=== PATIENT | male | born 1980 | race Hispanic/Latino ===

== ENCOUNTER 2018-06-20 21:47 | Emergency (ER) | payer SELFPAY ==
[~2018-06-20] VITALS: Ht 180.3 cm; Wt 117.9 kg
--- OUTSIDE RECORDS SUMMARY | 2018-06-20 21:50 | XMS REPORT ---
[facility] Address Unknown Phone Unavailable Care Team Providers Care Rig Builder Name Role Phone Unavailable Unavailable Problems This patient has no known problems. Allergies, Adverse Reactions, Alerts This patient has no known allergies or adverse reactions. Medications This patient has no known medications. Encounters Start Date/Time End Date/Time Encounter Type Admission Type Attending [facility] Care Department Encounter ID 2018-06-11 00:00:00 2018-06-11 00:00:00 [facility] [id number] 2018-06-07 00:00:00 2018-06-07 00:00:00 Outpatient [facility] [id number] 2018-06-04 00:00:00 2018-06-04 00:00:00 Outpatient [facility] [id number] 2018-06-04 00:00:00 2018-06-04 00:00:00 Outpatient [facility] [id number] 2018-06-01 00:00:00 2018-06-01 00:00:00 Outpatient [facility] [id number] 2018-03-04 16:13:03 2018-03-04 16:13:03 Outpatient [facility] [id number] 2018-02-22 00:00:00 2018-02-22 00:00:00 Outpatient [facility] [id number] 2018-02-19 16:13:00 2018-02-19 16:13:00 [facility] [id number] 2018-02-19 15:16:43 2018-02-19 15:16:43 Out[facility] [id number] 2017-12-04 00:00:00 2017-12-04 00:00:00 Outpatient [facility] [id number] 2017-11-11 09:28:03 2017-11-11 09:28:03 Outpatient [facility] [id number] 2017-10-23 08:46:47 2017-10-23 08:46:47 Outpatient [facility] [id number] 2017-10-23 08:19:51 2017-10-23 08:19:51 [facility]patient [facility] [id number] 2017-07-21 10:14:13 2017-07-21 10:14:13 Out[facility] [id number] 2017-06-26 00:00:00 2017-06-26 00:00:00 Outpatient [facility] [id number] 2017-06-15 00:00:00 2017-06-15 00:00:00 Outpatient [facility] [id number] 2017-06-04 11:55:49 2017-06-04 11:55:49 Outpatient [facility] [id number] 2017-06-02 22:42:47 2017-06-02 22:42:47 Emergency [facility] [id number] 2017-06-02 17:11:23 2017-06-02 17:11:23 Emergency [facility] [id number] 2017-05-29 21:00:45 2017-05-29 21:00:45 Emergency [facility] [id number]
[2018-06-20 22:35] VITALS: BP 148/90
== END 2018-06-20 22:38 | disposition home or self-care (01) ==
LOC: FSED 21:47
DX: K62.5 Hemorrhage of anus and rectum (principal); K64.8 Other hemorrhoids; R10.30 Lower abdominal pain, unspecified; I10 Essential (primary) hypertension
CPT/HCPCS: 80053; 82270; 85025; 99283

== ENCOUNTER 2020-01-01 21:54 | Emergency (ER) | payer SELFPAY ==
[~2020-01-01] VITALS: Ht 180.3 cm; Wt 117.9 kg
--- OUTSIDE RECORDS SUMMARY | 2020-01-01 21:58 | XMS REPORT | Continuity of Care Document ---
Author Author [facility] t Organization [facility] t Address [address] [place] [address] Phone Unavailable Care Team Providers Care Art Education Professor Name Role Phone NONSTAFF PCP Unavailable Kwan MAC, W Saman Attphys Tyra MAC, M Elieser Attphys Ace MAC, Lee Attphys Janice MAC, A Gale Attphys Brooke Fellow(), Aleks Attphys [phone] Beverly MAC, T Jose Martin Attphys Payers Payer Name Policy Type Policy Number Effective Date Expiration Date S celina [place] [employer] [employer] [employer] [employer] [id number] [address], [place] [address] xxxxxxx 2019 00:00:00 2020 23:59:59 [facility] PLANFINANCIAL ASSISTANCE PROGRAMxxx [id number] [place] [address] xxxxxxx 2019 00:00:00 2020-0 2-13 23:59:59 [facility] Problems Condition Name Condition Details Condition Category Status Onset Date Resolution Date Last Treatment Date Treating Clinician Comments Source Fatty liver: recommend dietary changes, weight loss Fa tty liver: recommend dietary changes, weight loss Disease Active 2018-10-21 00:00:00 [facility] Other constipation Other constipation Disease Active 2018-10-21 00:00:0 0 [facility] Chest pain in adult Chest pain in adult Disease Active 2017-06-02 00:00 :00 [facility] Left upper arm pain Left upper arm pain Disease Active [facility] Allergies, Adverse Reactions, Alerts Allergy Name Allergy Type Status Severity Reaction(s) Onset Date Inacti ve Date Treating Clinician Comments Source Fgvwkht-Wep-Oas Reductase Inhibitor DA Active SV 8 00:00:00 [facility] atorvastatin DA Active MO 2019-03-16 00:00:00 [facility] Atorvastatin Allergy to Substance Active 2018-06-20 00:00:0 0 [facility] Atorvastatin Propensity to adverse reactions to drug Active 2018-06-20 00:00:00 Other reaction(s): Atorvastatin [facility] Ffusnic-Zob-Wfl Reductase Inhibitors Propensity to adverse r eactions to drug Active Other 2018-03-04 00:00:00 Atorv astatin, pravastatin -- caused myalgias [facility] No Known Allergies DA Active U 2015-11-23 00:00:00 [facility] Family History Family Member Diagnosis Comments Start Date Stop Date Source Natural father Heart [facility] Natural mother Heart [facility] Social History Social Habit Start Date Stop Date Quantity Comments Source Sex Assigned At [facility] Cigarettes smoked current (pack per day) - Reported 00:00:00 2019-12-01 00:00:00 [facility] Cigarette pack-years 2019-12-01 00:00:00 2019-12-01 00:00:00 [facility] Alcohol intake 2019-12-01 00:00:00 2019-12-01 00:00:00 [facility] History SDOH Food Worry 2018-10-21 00:00:00 2018-10-21 00:00:00 1 [facility] History SDOH Food Scarcity 2018-10-21 00:00:00 2018-10-21 00:00:00 1 [facility] History of tobacco use 2017-05-03 00:00:00 Current smoker [facility] Smoking Status Start Date Stop Date Source Former smoker 2019-12-01 00:00:00 2019-12-01 00:00:00 [facility] Medications Ordered Medication Name Filled Medication Name Start Date Stop Da te Current Medication? Ordering Clinician Indication Dosage Frequency Signature (SIG) Comments Components Source traZODone (DESYREL) 50 mg tablet 2019-12-01 00:00:00 Yes Anxiety state 50mg Take 1 tablet by mouth at bedtime nightly. [facility] ergocalciferol (VITAMIN D2) 1,250 mcg (50,000 unit) capsule 2019-10-05 00:00:00 Yes Vitamin D deficiency [id number] Take 1 cap jerrell by mouth weekly. [facility] metoprolol tartrate (LOPRESSOR) 25 mg tablet 2019-10-03 00:0 0:00 Yes Palpitations 25mg Q.5D Take 1 tablet by mouth 2 times daily. [facility] lactulose (CONSTULOSE) 10 gram/15 mL oral solution 2019-09 00:00:00 Yes Other constipation 20g Take 30 mL by mouth 3 [address]. [facility] metoprolol tartrate (LOPRESSOR) 25 mg tablet 201 04-04-16 00:00:00 2019-10-03 00:00:00 No Palpitations TAKE 1 TABLET BY MOUTH TWI CE DAILY [facility] aspirin (ASPIRIN) 81 mg chewable tablet 2019-04-08 10:16:56 Yes 81mg QD Chew and swallow 81 mg by mouth daily. [facility]-xpfyasmdx-cvygkpjpxvqstc, buffe red, (CORTISPORIN) 3.5-10,000-1 mg/mL-unit/mL-% otic suspension 2019-02-21 00:00:00 2019-02-28 23:59: 00 No Otitis externa of left ear, unspecified chronicity, unspecified type 3[drp] Instill 3 Drops in right ear 4 times daily for 7 days. [facility] Docusate Sodium 100 mg Tab 2018-12-27 00:00:00 Yes Other constipation 100mg QD Take 100 mg by mouth daily. [facility] lactulose (CONSTULOSE) 10 gram/15 mL oral solution 2018-12-27 00:00:00 2019-10-03 00:00:00 No Other constipation 20g Take 30 mL by mouth 3 times daily. [facility] metoprolol tartrate (LOPRESSOR) 25 mg tablet 201 03-27-09 00:00:00 2019-04-09 00:00:00 No Palpitations 25mg Q.5D Take 1 tablet by mouth 2 t imes daily. [facility] Vital Signs Vital Name Observation Time Observation Value Comments Source Systolic blood pressure 2019-10-03 08:54:00 127 mm[Hg] [facility] Diastolic blood pressure 2019-10-03 08:54:00 87 mm[Hg] [facility] Heart rate 2019-10-03 08:54:00 81 /min [facility] Body temperature 2019-10-03 08:54:00 36.78 Jennifer Karis is [facility] Respiratory rate 2019-10-03 08:54:00 20 /min Karis is [facility] Body height 2019-10-03 08:54:00 177.8 cm [facility] Body weight 2019-10-03 08:54:00 111.041 kg [facility] BMI 2019-10-03 08:54:00 35.13 kg/m2 [facility] Oxygen saturation in Arterial blood by Pulse oximetry 04-08 10:42:00 97 /min [facility] Procedures Procedure Date / Time Performed Performing Clinician Sourc e ELECTROLYTES 2019-10-03 15:22:00 Saman Bowens [facility] CBC/DIFF 2019-10-03 15:22:00 Saman Bowens [facility] GLUCOSE 2019-10-03 15:22:00 Saman Bowens [facility] LIPID PROFILE 2019-10-03 15:22:00 Saman Bowens [facility] UREA NITROGEN/CREATININE 2019-10-03 15:22:00 Saman Bowens [facility] LIVER PROFILE 2019-10-03 15:22:00 Saman Bowens [facility] HIV-1/HIV-2 ROUTINE SCREENING 2019-10-03 15:22:00 Saman Bowens [facility] HEPATITIS PANEL 2019-10-03 15:22:00 Saman Bowens [facility] CALCIUM 2019-10-03 15:22:00 Saman Bowens [facility] VIT D, 25-HYDROXY 2019-10-03 15:22:00 Saman Bowens [facility] CBC 2019-10-03 15:22:00 Saman Bowens [facility] MYOCARDIAL PERFUSION SPECT REST/STRES SINGLE 2019-04-08 18:2 1:36 Saman Bowens [facility] TREADMILL STRESS-TRACING ONLY 2019-04-08 16:20:57 Sa mynor Gallegos [facility] ACTIN (SM) AB 2019-04-08 14:20:00 Aleks Cox [facility] LIVER KIDNEY MICR 2019-04-08 14:20:00 David Coxcanader [facility] ealth CERULOPLASMIN 2019-04-08 14:20:00 David Coxcanader [facility] lth FERRITIN 2019-04-08 14:20:00 Brooke [facility] DUPLEX DOPPLER LOWER EXTREMITY VENOUS, BILATERAL 2019-03-30 15:44:00 Saman Bowens [facility] TREADMILL STRESS-TRACING ONLY 2019-02-18 15:07:10 Saman Bowens [facility] LIVER PROFILE 2019-01-26 14:02:00 Saman Bowens [facility] HEPATITIS PANEL 2019-01-26 14:02:00 Saman Bowens [facility] Plan of Care Planned Activity Planned Date Details Comments Source Future Scheduled Test 2020-04-26 00:00:00 IMM Influenza Seas onal Apr to September (>/= 19 yrs) [code = IMM Influenza Seasonal Apr to September (>/= 19 yrs)] [facility] Encounters Start Date/Time End Date/Time Encounter Type Admission Type Attendi [facility] Care Department Encounter ID Source 2019-04-08 09:22:46 2019-04-08 09:22:46 Outpatient [facility] [id number] [facility] 2019-04-08 09:15:35 2019-04-08 09:15:35 Outpatient [facility] [id number] [facility] 2019-04-05 13:14:09 2019-04-05 13:14:09 Outpatient [facility] [id number] [facility] 2019-03-30 09:34:27 2019-03-30 09:34:27 Outpatient [facility] [id number] [facility] 2019-03-21 00:00:00 2019-03-21 00:00:00 Outpatient [facility] [id number] [facility] 2019-03-10 00:00:00 2019-03-10 00:00:00 Outpatient [facility] [id number] [facility] 2019-02-21 13:49:23 2019-02-21 13:49:23 Outpatient [facility] [id number] [facility] 2019-02-18 08:56:15 2019-02-18 08:56:15 Outpatient [facility] [id number] [facility] 2019-01-26 09:01:42 2019-01-26 09:01:42 Outpatient [facility] [id number] [facility] 2019-01-26 00:00:00 2019-01-26 00:00:00 Outpatient [facility] [id number] [facility] 2018-12-30 11:40:10 2018-12-30 11:40:10 Outpatient [facility] [id number] [facility] 2018-12-27 14:25:35 2018-12-27 14:25:35 Outpatient [facility] [id number] [facility] 2018-12-24 00:00:00 2018-12-24 00:00:00 Outpatient [facility] [id number] [facility] 2018-11-30 13:48:13 2018-11-30 13:48:13 Outpatient [facility] [id number] [facility] 2018-11-29 08:28:51 2018-11-29 08:28:51 Outpatient [facility] [id number] [facility] 2018-11-19 00:00:00 2018-11-19 00:00:00 Outpatient [facility] [id number] [facility] 2018-11-15 00:00:00 2018-11-15 00:00:00 Outpatient [facility] [id number] [facility] 2018-11-15 00:00:00 2018-11-15 00:00:00 Outpatient [facility] [id number] [facility] 2018-11-04 12:00:50 2018-11-04 12:00:50 Outpatient [facility] [id number] [facility] 2018-11-04 11:20:10 2018-11-04 11:20:10 Outpatient [facility] [id number] [facility] 2018-10-28 00:00:00 2018-10-28 00:00:00 Outpatient [facility] [id number] [facility] 2018-10-21 09:59:09 2018-10-21 09:59:09 Outpatient [facility] [id number] [facility] 2018-10-21 08:59:53 2018-10-21 08:59:53 Outpatient [facility] [id number] [facility] 2018-10-01 00:00:00 2018-10-01 00:00:00 Outpatient [facility] [id number] [facility] 2018-09-13 00:00:00 2018-09-13 00:00:00 Outpatient [facility] [id number] [facility] 2018-09-10 00:00:00 2018-09-10 00:00:00 Outpatient [facility] [id number] [facility] 2018-09-08 00:00:00 2018-09-08 00:00:00 Outpatient [facility] [id number] [facility] 2018-09-01 00:00:00 2018-09-01 00:00:00 Outpatient [facility] [id number] [facility] 2018-08-12 12:24:05 2018-08-12 12:24:05 Outpatient [facility] [id number] [facility] 2018-08-06 08:31:56 2018-08-06 08:31:56 Outpatient [facility] [id number] [facility] 2018-08-04 15:13:11 2018-08-04 15:13:11 Outpatient [facility] [id number] [facility] 2018-06-25 20:51:28 2018-06-25 20:51:28 Emergency [facility] [id number] [facility] 2018-06-22 00:00:00 2018-06-22 00:00:00 Outpatient [facility] [id number] [facility] 2018-06-20 21:47:00 2018-06-20 22:38:00 Departed Emergency Room [facility] [id number] [facility] 2018-06-11 00:00:00 2018-06-11 00:00:00 Outpatient [facility] [id number] [facility] 2018-06-07 00:00:00 2018-06-07 00:00:00 Outpatient [facility] [id number] [facility] 2018-06-04 00:00:00 2018-06-04 00:00:00 Outpatient [facility] [id number] [facility] 2018-06-04 00:00:00 2018-06-04 00:00:00 Outpatient [facility] [id number] [facility] 2018-06-01 00:00:00 2018-06-01 00:00:00 Outpatient [facility] [id number] [facility] 2018-03-04 16:13:03 2018-03-04 16:13:03 Outpatient [facility] [id number] [facility] 2018-02-22 00:00:00 2018-02-22 00:00:00 Outpatient [facility] [id number] [facility] 2018-02-19 16:13:00 2018-02-19 16:13:00 Outpatient [facility] [id number] [facility] 2018-02-19 15:16:43 2018-02-19 15:16:43 Outpatient [facility] [id number] [facility] 2017-12-04 00:00:00 2017-12-04 00:00:00 Outpatient [facility] [id number] [facility] 2017-11-11 09:28:03 2017-11-11 09:28:03 Outpatient [facility] [id number] [facility] 2017-10-23 08:46:47 2017-10-23 08:46:47 Outpatient [facility] [id number] [facility] 2017-10-23 08:19:51 2017-10-23 08:19:51 Outpatient [facility] [id number] [facility] 2017-07-21 10:14:13 2017-07-21 10:14:13 Outpatient [facility] [id number] [facility] 2017-06-26 00:00:00 2017-06-26 00:00:00 Outpatient [facility] [id number] [facility] 2017-06-15 00:00:00 2017-06-15 00:00:00 Outpatient [facility] [id number] [facility] 2017-06-04 11:55:49 2017-06-04 11:55:49 Outpatient [facility] [id number] [facility] 2017-06-02 22:42:47 2017-06-02 22:42:47 Emergency [facility] [id number] [facility] 2017-06-02 17:11:23 2017-06-02 17:11:23 Emergency [facility] [id number] [facility] 2017-05-29 21:00:45 2017-05-29 21:00:45 Emergency [facility] [id number] [facility] Results Test Description Test Time Test Comments Results Result Comments Source - XR C-SPINE 2-3 VIEWS 2019-12-16 16:56:00 Nikhil e: YUNIOR RODRIGUEZ [facility] : 1980 Age/S:39 /M [address] [facility] Unit#:[id number] Loc: [place] [address] Phys: Mario Montes [employer]IST[employer] Dis Date: PHONE #: [phone] Status: REG ER FAX #: [phone] Exam Date: 12/16/2019 Reason: PAIN EXAMS: CPT CODE: [id number] XR C-SPINE 2-3 VIEWS 10618 EXAM: Cervical spine, 5 views; INFORMATION: Neck pain; FINDINGS: There is good alignment of the cervical spine. Vertebral bodies, the dens and posterior elements are intact; no evidence of fracture or dislocation. Normal height of intervertebral discs. Unremarkable facet joints. Paravertebral soft tissues are also unremarkable. IMPRESSION: Negative C-spine series. Location code: [facility] at 1656 Reported and signed by: Lucio Pretty M.D. CC: Lico Ariza MD; Mario Montes [facility] Technologist: OMID RIVER, RT(R),CT Trnscrpt D kole: 12/16/2019 (1655) t.[email or web address] Orig Print D/T: S: 12/16/2019 (707) PAGE 1 Signed Report - CTA CHEST FOR PE 2019-12-06 21:17:00 Name: YUNIOR KLEIN [facility] : 1980 Age/S: 39 / M [address] [facility] Unit #: [id number] Loc: [place] [address] Phys: Gaurav Yip NP Acct: [id number] Dis Date: Status: REG ER PHONE #: [phone] Exam Date: 12/06/2019 2114 FAX #: [phone] Reason: R/O PE EXAMS: CPT CODE: [id number] [place] [address] REASON FOR EXAM: R/O PE EXAM ORDER DATE: 12/06/2019 8:32 PM Ordering: Gaurav Yip NP Attending:Sue Pierre MD Location:[facility] COMPARISON: PROCEDURE: - CTA CHEST FOR PE FINDINGS: CT images of the chest were obtained with IV contrast. Reconstructed sagittal and coronal images of the chest were provided for interpretation. Dose modulation, iterative reconstruction, and/or weight based adjustment of the MA/KV was utilized to reduce the radiation dose to as low as reasonably achievable. Intravenous contrast: 100cc of Omnipaque 370. The heart size is within normal limits. No evidence of pericardial effusion The thoracic aorta is unremarkable. No evidence of dissection or aneurysmal dilatation. No filling defect seen within the main or lobar pulmonary arteries to suggest pulmonary embolus. No evidence of mediastinal or hilar adenopathy. The lungs are clear. No evidence of pleural effusion IMPRESSION: No acute findings in the chest. at 2116 Reported and signed by: Reed Brady M.D. CC: Gaurav Yip NP Technologist:MARCELL FOFANA RT(R),CT CTDI: DLP: Trnscb Date/Time: 12/06/2019 (2116) [email or web address] Orig Print D/T: S: 12/06/2019 (2119) PAGE 1 Signed Report D-DIMER 2019-12-06 20:41:00 Test Item D-DIMER (test code = DDIMER) < 100 ng/ml < 600 BASIC METABOLIC [id number] 20:40:00* Test Item Value Reference Range Interpretation Comments SODIUM (test code = NA) 139 mmol/L 135-148 N POTASSIUM (test code = K) 3.8 mmol/L 3.5-5.1 N CHLORIDE (test code = CL) 102 mmol/L 101-109 N CARBON DIOXIDE (test code = CO2) 27.5 mmol/L 21-32 N ANION GAP (test code = GAP) 13 mmol/L 10-20 N GLUCOSE (test code = GLU) 97 mg/dL 74-106 N BLOOD UREA NITROGEN (test code = BUN) 14 mg/dL 3-21 N GLOMERULAR FILTRATION RATE (test code = GFR) > 60 mL/min >=60 Estimated GFR by using Modified MDRD formula.Chronic kidney disease is defined as either kidney damageor GFR <60 mL/min/1.73 m2 for >3 months. CREATININE (test code = CREAT) 1.01 mg/dL 0.55-1.3 N BUN/CREATININE RATIO (test code = BUN/CREA) 13.9 10-20 N CALCIUM (test code = CA) 8.4 mg/dL 8.4-10.2 N [id number] 20:40:00* Test Item Value Reference Range Interpretation Comments TROPONIN-I (test code = TROPI) <0.015 ng/mL 0.00-0.056 N BASIC METABOLIC [id number] 20:37:00* Test Item Value Reference Range Interpretation Comments SODIUM (test code = NA) 139 mmol/L 135-148 N POTASSIUM (test code = K) 3.8 mmol/L 3.5-5.1 N CHLORIDE (test code = CL) 102 mmol/L 101-109 N CARBON DIOXIDE (test code = CO2) 27.5 mmol/L 21-32 N ANION GAP (test code = GAP) 13 mmol/L 10-20 N GLUCOSE (test code = GLU) 97 mg/dL 74-106 N BLOOD UREA NITROGEN (test code = BUN) 14 mg/dL 3-21 N GLOMERULAR FILTRATION RATE (test code = GFR) > 60 mL/min >=60 Estimated GFR by using Modified MDRD formula.Chronic kidney disease is defined as either kidney damageor GFR <60 mL/min/1.73 m2 for >3 months. CREATININE (test code = CREAT) 1.01 mg/dL 0.55-1.3 N BUN/CREATININE RATIO (test code = BUN/CREA) 13.9 10-20 N CALCIUM (test code = CA) 8.4 mg/dL 8.4-10.2 N [id number] 20:37:00* Test Item Value Reference Range Interpretation Comments TROPONIN-I (test code = TROPI) ng/mL 0-0.045 URINALYSIS [id number] 20:37:00* Test Item Value Reference Range Interpretation Comments UA COLOR (test code = COLU) YELLOW YELLOW UA APPEARANCE (test code = APPU) CLEAR CLEAR UA GLUCOSE DIPSTICK (test code = DGLUU) norm mg/dL NEGATIVE UA BILIRUBIN DIPSTICK (test code = BILU) NEGATIVE mg/dL NEGATIVE UA KETONE DIPSTICK (test code = KETU) 15 (1+) mg/dL NEGATIVE A UA SPECIFIC GRAVITY (test code = SGU) 1.015 1.001-1.035 UA BLOOD DIPSTICK (test code = NICHOL) 25 (1+) Mikel/uL NEGATIVE A UA PH DIPSTICK (test code = JOAN) 5.0 5.0-8.0 UA PROTEIN DIPSTICK (test code = PROU) neg mg/dL Neg-15 UA UROBILINIOGEN DIPSTICK (test code = URO) 1 mg/dL 0.0-0.2 A UA NITRITE DIPSTICK (test code = YU) NEGATIVE NEGATIVE UA LEUKOCYTE ESTERASE DIPSTICK (test code = LEUU) neg uL NEGA TIVE UA WBC (test code = WBCU) NONE SEEN per HPF 0-5 UA RBC (test code = RBCU) 0-3 per HPF 0-5 UA EPITHELIAL CELLS (test code = EPIU) Rare (0-1/hpf) per HPF Few UA BACTERIA (test code = BACU) FEW per HPF NONE UA MUCUS (test code = MUCU) MODERATE per LPF NONE-FEW A Urine Source? VoidedDRUGS OF ABUSE SCREEN [id number] 20:37:00* Test Item Value Reference Range Interpretation Comments URN COCAINE (test code = COCAURN) NEGATIVE NEGATIVE URN CANNABINOIDS (test code = CANNABURN) POSITIVE NEGATIVE A URN AMPHETAMINE (test code = AMPHETURN) NEGATIVE NEGATIVE URN BARBITURATE (test code = BARBITURN) NEGATIVE NEGATIVE URN BENZODIAZEPINE (test code = BENZOURN) NEGATIVE NEGATIVE URN OPIATES (test code = OPIATURN) NEGATIVE NEGATIVE URN PHENCYCLIDINE (PCP) (test code = PHENCURN) NEGATIVE NEGATIV E Urine Source? VoidedURINALYSIS [id number] 20:28:00* Test Item Value Reference Range Interpretation Comments UA COLOR (test code = COLU) YELLOW YELLOW UA APPEARANCE (test code = APPU) CLEAR CLEAR UA GLUCOSE DIPSTICK (test code = DGLUU) norm mg/dL NEGATIVE UA BILIRUBIN DIPSTICK (test code = BILU) NEGATIVE mg/dL NEGATIVE UA KETONE DIPSTICK (test code = KETU) 15 (1+) mg/dL NEGATIVE A UA SPECIFIC GRAVITY (test code = SGU) 1.015 1.001-1.035 UA BLOOD DIPSTICK (test code = NICHOL) 25 (1+) Mikel/uL NEGATIVE A UA PH DIPSTICK (test code = JOAN) 5.0 5.0-8.0 UA PROTEIN DIPSTICK (test code = PROU) neg mg/dL Neg-15 UA UROBILINIOGEN DIPSTICK (test code = URO) 1 mg/dL 0.0-0.2 A UA NITRITE DIPSTICK (test code = YU) NEGATIVE NEGATIVE UA LEUKOCYTE ESTERASE DIPSTICK (test code = LEUU) neg uL NEGA TIVE UA WBC (test code = WBCU) NONE SEEN per HPF 0-5 UA RBC (test code = RBCU) 0-3 per HPF 0-5 UA EPITHELIAL CELLS (test code = EPIU) Rare (0-1/hpf) per HPF Few UA BACTERIA (test code = BACU) FEW per HPF NONE UA MUCUS (test code = MUCU) MODERATE per LPF NONE-FEW A Urine Source? VoidedDRUGS OF ABUSE SCREEN [id number] 20:28:00* Test Item Value Reference Range Interpretation Comments URN COCAINE (test code = COCAURN) NEGATIVE URN CANNABINOIDS (test code = CANNABURN) NEGATIVE URN AMPHETAMINE (test code = AMPHETURN) NEGATIVE URN BARBITURATE (test code = BARBITURN) NEGATIVE URN BENZODIAZEPINE (test code = BENZOURN) NEGATIVE URN OPIATES (test code = OPIATURN) NEGATIVE URN PHENCYCLIDINE (PCP) (test code = PHENCURN) NEGATIV E Urine Source? VoidedURINALYSIS [id number] 20:25:00* Test Item Value Reference Range Interpretation Comments UA COLOR (test code = COLU) YELLOW YELLOW UA APPEARANCE (test code = APPU) CLEAR CLEAR UA GLUCOSE DIPSTICK (test code = DGLUU) norm mg/dL NEGATIVE UA BILIRUBIN DIPSTICK (test code = BILU) NEGATIVE mg/dL NEGATIVE UA KETONE DIPSTICK (test code = KETU) 15 (1+) mg/dL NEGATIVE A UA SPECIFIC GRAVITY (test code = SGU) 1.015 1.001-1.035 UA BLOOD DIPSTICK (test code = NICHOL) 25 (1+) Mikel/uL NEGATIVE A UA PH DIPSTICK (test code = JOAN) 5.0 5.0-8.0 UA PROTEIN DIPSTICK (test code = PROU) neg mg/dL Neg-15 UA UROBILINIOGEN DIPSTICK (test code = URO) 1 mg/dL 0.0-0.2 A UA NITRITE DIPSTICK (test code = YU) NEGATIVE NEGATIVE UA LEUKOCYTE ESTERASE DIPSTICK (test code = LEUU) neg uL NEGA TIVE UA WBC (test code = WBCU) per HPF 0-5 UA RBC (test code = RBCU) per HPF 0-5 UA EPITHELIAL CELLS (test code = EPIU) per HPF Few UA BACTERIA (test code = BACU) per HPF NONE Urine Source? VoidedDRUGS OF ABUSE SCREEN [id number] 20:25:00* Test Item Value Reference Range Interpretation Comments URN COCAINE (test code = COCAURN) NEGATIVE URN CANNABINOIDS (test code = CANNABURN) NEGATIVE URN AMPHETAMINE (test code = AMPHETURN) NEGATIVE URN BARBITURATE (test code = BARBITURN) NEGATIVE URN BENZODIAZEPINE (test code = BENZOURN) NEGATIVE URN OPIATES (test code = OPIATURN) NEGATIVE URN PHENCYCLIDINE (PCP) (test code = PHENCURN) NEGATIV E Urine Source? VoidedCBC W/O [id number] 20:24:00* Test Item Value Reference Range Interpretation Comments WHITE BLOOD CELL (test code = WBC) 7.4 K/mm3 4.5-12.5 N RED BLOOD CELL (test code = RBC) 5.11 mill/mm3 4.0-5.8 N HEMOGLOBIN (test code = HGB) 15.5 gram/dL 13.0-17.5 N HEMATOCRIT (test code = HCT) 43.3 % 42.0-52.0 N MEAN CELL VOLUME (test code = MCV) 84.7 fL 80-98 N MEAN CELL HGB (test code = MCH) 30.3 picogram 27.0-33.0 N MEAN CELL HGB CONCETRATION (test code = MCHC) 35.8 gram/dL 33.0-36. 0 N RED CELL DISTRIBUTION WIDTH (test code = RDW) 11.8 % 11.6-16. 2 N RED CELL DISTRIBUTION WIDTH SD (test code = RDW-SD) 37.7 fL 37 .0-51.0 N PLATELET COUNT (test code = PLT) 191 K/mm3 150-450 N MEAN PLATELET VOLUME (test code = MPV) 9.7 fL 6.7-11.0 N - XR CHEST 1 [id number] 20:14:00 Name: YUNIOR RODRIGUEZ [facility]: 1980 Age/S:39 /M [address] [facility] Unit#:[id number] Loc: [place] [address] Phys: Gaurav Yip DESIGN ASSISTANT Dis Date: PHONE #: [phone] Status: REG ER FAX #: [phone] Exam Date: 12/06/2019 Reason: CHEST PAIN EXAMS: CPT CODE: [id number] XR CHEST 1 V 21525 REASON FOR EXAM: CHEST PAIN EXAM ORDER DATE: 12/06/2019 7:48 PM Ordering: Gaurav Yip NP Attending:Sue Pierre MD Location:[facility] PROCEDURE: - XR CHEST 1 V COMPARISON: 12/02/2019 FINDINGS: Portable AP frontal view of the chest obtained at 8:01 PM shows clear lungs without evidence of consolidation. There is no evidence of effusion. The heart size is within normal limits. Pulmonary vasculatures are unremarkable. IMPRESSION: No active disease. at 2013 Reported and signed by: Reed Brady M.D. CC: Gaurav Yip NP Technologist: MARCELL FOFANA RT(R),CT Trnscrpt Data: 12/06/2019 (2013) tSHREYASL Orig Print D/T: S: 12/06/2019 (2016) PAGE 1 Signed Report [id number] 14:59:00* Test Item Value Reference Range Interpretation Comments TROPONIN-I (test code = TROPI) <0.015 ng/mL 0.00-0.056 N - XR CHEST 1 [id number] 12:16:00 Name: YUNIOR RODRIGUEZ [facility] : 1980 Age/S:39 /M [facility] Unit#:[id number] Loc: [place] [address] Phys: Marcelle Hogue MD Dis Date: PHONE #: [phone] Status: REG ER FAX #: [phone] Exam Date: 12/02/2019 Reason: CHEST PAIN EXAMS: CPT CODE: [id number] XR CHEST 1 V 36339 REASON FOR EXAM: CHEST PAIN Exam Order Date: 12/02/2019 11:25 AM Ordering M.Ashely: Marcelle Hogue MD PROCEDURE: - XR CHEST 1 V COMPARISON: Chest x-ray February 18, 2018 FINDINGS: The lungs are clear. There is no pleural effusion or pneumothorax. Pulmonary vascularity is within normal limits. Cardiomediastinal silhouette is normal in size for technique. The mediastinal contours are within normal limits. Musculoskeletal structures are within normal limits. The visualized upper abdomen is within normal limits. IMPRESSION: No acute cardiopulmonary process. Location: [facility] at 1216 Reported and signed by: Franklyn Valentine MD CC: Marcelle Hogue MD Technologist: OMID RIVER, RT(R),CT Trnscrpt Data: 12/02/2019 (1216) t.SDR.RR31 Orig Print D/T: S: 12/02/2019 (5789) PAGE 1 Signed Report BASIC METABOLIC [id number] 12:05:00* Test Item Value Reference Range Interpretation Comments SODIUM (test code = NA) 140 mmol/L 136-145 N POTASSIUM (test code = K) 3.5 mmol/L 3.5-5.1 N CHLORIDE (test code = CL) 102 mmol/L 101-109 N CARBON DIOXIDE (test code = CO2) 21.5 mmol/L 21-32 N ANION GAP (test code = GAP) 20 mmol/L 10-20 N GLUCOSE (test code = GLU) 106 mg/dL 74-106 N BLOOD UREA NITROGEN (test code = BUN) 15 mg/dL 3-21 N GLOMERULAR FILTRATION RATE (test code = GFR) > 60 mL/min >=60 Estimated GFR by using Modified MDRD formula.Chronic kidney disease is defined as either kidney damageor GFR <60 mL/min/1.73 m2 for >3 months. CREATININE (test code = CREAT) 1.12 mg/dL 0.55-1.3 N BUN/CREATININE RATIO (test code = BUN/CREA) 13.4 10-20 N CALCIUM (test code = CA) 8.7 mg/dL 8.4-10.2 N HEPATIC FUNCTION [id number] 12:05:00* Test Item Value Reference Range Interpretation Comments TOTAL PROTEIN (test code = PROT) 8.4 g/dL 6.5-8.4 N ALBUMIN (test code = ALB) 4.9 g/dL 3.4-4.8 H GLOBULIN (test code = GLOB) 3.5 G/DL 1-10 N ALBUMIN/GLOBULIN RATIO (test code = A/G) 1.40 RATIO 0.75-1.50 N BILIRUBIN TOTAL (test code = BILT) 1.10 mg/dL 0.0-1.0 H BILIRUBIN DIRECT (test code = BILD) 0.20 mg/dL 0.0-0.30 N SGOT/AST (test code = AST) 50 U/L 6-32 H SGPT/ALT (test code = ALT) 98 U/L 12-78 H N ote: Change in REFERENCE RANGE due to new reagent method. ALKALINE PHOSPHATASE TOTAL (test code = ALKP) 62 U/L 38-126 N [id number] 12:05:00* Test Item Value Reference Range Interpretation Comments LIPASE (test code = LIP) 114 U/L 128-270 L [id number] 12:05:00* Test Item Value Reference Range Interpretation Comments TROPONIN-I (test code = TROPI) <0.015 ng/mL 0.00-0.056 N BASIC METABOLIC [id number] 11:58:00* Test Item Value Reference Range Interpretation Comments SODIUM (test code = NA) 140 mmol/L 136-145 N POTASSIUM (test code = K) 3.5 mmol/L 3.5-5.1 N CHLORIDE (test code = CL) 102 mmol/L 101-109 N CARBON DIOXIDE (test code = CO2) 21.5 mmol/L 21-32 N ANION GAP (test code = GAP) 20 mmol/L 10-20 N GLUCOSE (test code = GLU) 106 mg/dL 74-106 N BLOOD UREA NITROGEN (test code = BUN) 15 mg/dL 3-21 N GLOMERULAR FILTRATION RATE (test code = GFR) > 60 mL/min >=60 Estimated GFR by using Modified MDRD formula.Chronic kidney disease is defined as either kidney damageor GFR <60 mL/min/1.73 m2 for >3 months. CREATININE (test code = CREAT) 1.12 mg/dL 0.55-1.3 N BUN/CREATININE RATIO (test code = BUN/CREA) 13.4 10-20 N CALCIUM (test code = CA) 8.7 mg/dL 8.4-10.2 N HEPATIC FUNCTION [id number] 11:58:00* Test Item Value Reference Range Interpretation Comments TOTAL PROTEIN (test code = PROT) gram/dL 6.4-8.2 ALBUMIN (test code = ALB) g/dL 3.4-5.0 GLOBULIN (test code = GLOB) g/dL 2.7-4.2 ALBUMIN/GLOBULIN RATIO (test code = A/G) 0.75-1.50 BILIRUBIN TOTAL (test code = BILT) mg/dL 0.2-1.2 BILIRUBIN DIRECT (test code = BILD) mg/dL 0.0-0.20 SGOT/AST (test code = AST) IUnit/L 15-37 SGPT/ALT (test code = ALT) U/L 10-69 ALKALINE PHOSPHATASE TOTAL (test code = ALKP) IUnit/L 45-117 [id number] 11:58:00* Test Item Value Reference Range Interpretation Comments LIPASE (test code = LIP) Unit/L 144-286 [id number] 11:58:00* Test Item Value Reference Range Interpretation Comments TROPONIN-I (test code = TROPI) ng/mL 0-0.045 CBC W/O [id number] 11:47:00* Test Item Value Reference Range Interpretation Comments WHITE BLOOD CELL (test code = WBC) 8.5 K/mm3 4.5-12.5 N RED BLOOD CELL (test code = RBC) 5.55 mill/mm3 4.0-5.8 N HEMOGLOBIN (test code = HGB) 16.3 gram/dL 13.0-17.5 N HEMATOCRIT (test code = HCT) 47.4 % 42.0-52.0 N MEAN CELL VOLUME (test code = MCV) 85.4 fL 80-98 N MEAN CELL HGB (test code = MCH) 29.4 picogram 27.0-33.0 N MEAN CELL HGB CONCETRATION (test code = MCHC) 34.4 gram/dL 33.0-36. 0 N RED CELL DISTRIBUTION WIDTH (test code = RDW) 11.9 % 11.6-16. 2 N RED CELL DISTRIBUTION WIDTH SD (test code = RDW-SD) 37.8 fL 37 .0-51.0 N PLATELET COUNT (test code = PLT) 227 K/mm3 150-450 N MEAN PLATELET VOLUME (test code = MPV) 9.5 fL 6.7-11.0 N Vitamin D, 11-Jcaneyjfrvzgrcocb2059-04-10 11:20:00* Test Item Value Reference Range Interpretation Comments Vit D, 25-Hydroxy (test code = 70543630) 29.2 ng/mL 30-100 L Vitamin D Interpretation (test code = 46764825) Insufficient Suffic ient A Sufficient: >30.0Insufficient: 20.0 - 29.9Deficient: <20.0 Lab Interpretation (test code = 20679-5) [facility]normal [facility] Rout[facility] [id number] 20:53:00* Test Item Value Reference Range Interpretation Comments HIV-1/HIV-2 (test code = 29320-2) Negative Negative Lab Interpretation (test code = 31260-8) Normal [facility] CenterHepatitis [id number] 17:34:00* Test Item Value Reference Range Interpretation Comments Hep C Vir Ab IgG (test code = 26240-4) Negative Negative Hep B Surface Ag (test code = 5196-1) Negative Negative Hep A Vir Ab IgM (test code = 73836-0) Negative Negative Hep B Core Ab IgM (test code = 87706-3) Negative Negative Lab Interpretation (test code = 95923-5) Normal [facility] CenterCBC/Hupm5777-07-07 17:26:00* Test Item Value Reference Range Interpretation Comments WBC (test code = 6690-2) 7.8 K/uL 4.5-12 RBC (test code = 789-8) 4.64 4.60- 6.20 M/uL Hemoglobin (test code = 718-7) 14.1 g/dL 14-18 Hematocrit (test code = 4544-3) 42.3 % 40-54 MCV (test code = 787-2) 91.2 fL 82-92 MCH (test code = 785-6) 30.4 pg 27-31 MCHC (test code = 786-4) 33.3 g/dL 32-36 RDW (test code = 16537-2) 39.1 fL 35.1-43.9 Platelet (test code = 777-3) 256 K/uL 150-400 Mean Platelet Volume (test code = 86790-3) 9.9 fL 9.4-12.4 Percent NRBC (test code = 21261518) 0.0 % Neutrophil (test code = 770-8) 72.9 % 34-67.9 H Lymphs (test code = 736-9) 16.2 % 21.8-50 L Monocytes (test code = 5905-5) 9.3 % 5.3-12 Eos (test code = 713-8) 0.9 % 0.8-5 Basos (test code = 706-2) 0.3 % 0.2-1.2 Immature Granulocytes (test code = 20425445) 0.4 % 0-0.5 Neutrophils (Absolute) (test code = 78963041) 5.71 K/uL 1.78-5.3 6 H Lymphs (Absolute) (test code = 43450394) 1.27 K/uL 1.32-3.57 L Monocytes(Absolute) (test code = 23350449) 0.73 K/uL 0.3-0.82 Eos (Absolute) (test code = 92098166) 0.07 K/uL 0.04-0.54 Baso (Absolute) (test code = 75672745) 0.02 K/uL 0.01-0.08 Immature Grans (Abs) (test code = 28690912) 0.03 K/uL 0-0.03 Absolute NRBC (test code = 32624223) 0.00 K/uL Lab Interpretation (test code = 94889-1) Abnormal [facility] Health[facility] Nitrogen/Yrhtczcyxt7027-58-51 15:49:00* Test Item Value Reference Range Interpretation Comments Urea Nitrogen (test code = 37114958) 12.0 mg/dL 7-25 Creatinine (test code = 94327671) 1.0 mg/dL 0.7-1.3 GFR, Estimated (test code = 48201106) 84 >=90 mL/min/1.73 m2 L Lab Interpretation (test code = 46777-1) Abnormal [place] FheaexFvlrfmt5804-67-06 15:49:00* Test Item Value Reference Range Interpretation Comments Calcium (test code = 73310671) 9.1 mg/dL 8.6-10.3 Lab Interpretation (test code = 69020-3) Normal [facility] MslsybUompihb0679-64-05 15:49:00* Test Item Value Reference Range Interpretation Comments Glucose (test code = 44562337) 96 mg/dL 70-110 Lab Interpretation (test code = 90599-5) Normal [facility] HealthLipid Pfixprz8478-28-84 15:49:00* Test Item Value Reference Range Interpretation Comments Cholesterol (test code = 2093-3) 131.0 mg/dL <=200.0 Triglyceride (test code = 92377450) 192 mg/dL <150 H HDL (test code = 2085-9) 25.0 mg/dL See Reference Range Narrative . LDL (test code = 98623-1) 68 mg/dL <100 Op timal: < 100.0 mg/dLNear Optimal: 120-129 mg/dLBorderline: 130-159 mg/dLHigh: 160-189 mg/dLVery High: >=190 mg/dL Patient Fasting? (test code = 04902463) Yes Lab Interpretation (test code = 91159-3) Abnormal [facility] HealthLiver Rmubrek7126-83-93 15:49:00* Test Item Value Reference Range Interpretation Comments Bilirubin, Total (test code = 2885-2) 0.7 mg/dL 0.2-1.2 Alkaline Phosphatase (test code = 56838450) 46 U/L 34-104 AST (test code = 99153579) 18 U/L 13-39 Direct Bilirubin (test code = 1968-7) 0.2 mg/dL 0-0.2 ALT (test code = 56012779) 37 U/L 7-52 Albumin (test code = 15128-2) 4.3 g/dL 4.2-5.5 Lab Interpretation (test code = 88643-1) Normal [facility] XxukbmMazhcklwrpiy9451-54-56 15:49:00* Test Item Value Reference Range Interpretation Comments Sodium (test code = 2951-2) 141 mmol/L 136-145 Potassium (test code = 2823-3) 4.7 mmol/L 3.5-5.1 Chloride (test code = 2075-0) 103 mmol/L 98-107 CO2 (test code = 23532034) 29 mmol/L 21-31 Anion Gap (test code = 51545844) 9 mmol/L 5-16 Lab Interpretation (test code = 42740-2) Normal [facility] HealthSTREPTOCOCCUS PCR [id number] 18:04:00* Test Item Value Reference Range Interpretation Comments STREPTOCOCCUS DYSGALACTIAE (test code = STREPGC) NEGATIVE FOR G/C N EGATIVE STREPA MOLECULAR (test code = STREPAMOL) NEGATIVE FOR GRP A NEGATIV E MONO [id number] 09:20:00* Test Item Value Reference Range Interpretation Comments MONO SCREEN (test code = MONO) POSITIVE NEGATIVE A TREADMILL STRESS-TRACING [id number] 13:43:04Stress Test [facility] Test Date: 4781-53-62Dql Name: YUNIOR RODRIGUEZ Department: Room: Gender: [employer] Laborer: JAMES BRANOB: 1980 Requested By: GALE CAMACHO AOrder Number: [id number] Reading MD: Lissa Acosta MD Interpretive Statements1. The patient exercised according to the LESLY protocol for 9:43 mins,achievinga work level of Max. METS: 10.40. The resting heart rate of 64 bpm zac to amaximal heart rate of 151 bpm. This value represents 82 % of the maximal,age-predicted heart rate. The resting blood pressure of 143/81 mmHg zac to amaximum blood pressure of 220/106 mmHg. The exercise test was stopped due toleg discomfort.2. Baseline ECG showed normal sinus rhythm.3. There were no ECG changes suggestive of ischemia with treadmill stress.There was no significant arrhythmia noted. 4. The patient did not experience symptoms during peak exercise.5. Hypertensive response to exercise.6. Non-diagnostic treadmill due to inability to reach target heart rate.7. Please see results from nuclear stress test from the same date forperfusion data. Electronically Signed On 04-13-2019 13:43:00 CDT by Daysi [facility] HealthLiv/Kidney Srhb9800-06-90 13:08:00 * Test Item Value Reference Range Interpretation Comments Liver-Kidney Microsomal Ab (test code = 70641-3) 1.1 0.0- 20.0 Units Negative 0.0 - 20.0 Equivocal 20.1 - 24.9 Positive >24.9LKM type 1 antibodies are detected in patients withautoimmune hepatitis type 2 and in up to 8% ofpatients with chronic HCV infection. BRONWYN (test code = BRONWYN) Performed at: [facility] [id number] Director: Dick Meeks MD, Phone: [phone] [facility] CenterGrigdoXAM2967-66-27 11:30:00* Test Item Value Reference Range Interpretation Comments AL Screen (test code = 82227824) Negative Negative Lab Interpretation (test code = 30168-5) Normal [facility] CenterActin (Sm) [id number] 19:07:00* Test Item Value Reference Range Interpretation Comments Actin (Smooth Muscle) Antibody (test code = 26288-4) 9 0 - 19 Units Negative 0 - 19 Weak positive 20 - 30 Moderate to strong positive >30 Actin Antibodies are found in 52-85% of patients with autoimmune hepatitis or chronic active hepatitis and in 22% of patients with primary biliary cirrhosis. BRONWYN (test code = BRONWYN) Performed at: [address] [place] [id number] Director: Dick Meeks MD, Phone: [phone] [facility] CenterMYOCARDIAL PERFUSION SPECT REST/STRES [id number] 15:04:00 MYOCARDIAL PERFUSION SPECT REST/STRES SINGLE Myocardial Perfusion Report YUNIOR WALSH Age: 38 Gender: M : Exam Date: 04/08/2019 13:20 Exam Location: [facility] ing Phys: GALE CAMACHO Referring Phys: JOSE MARTIN MEDINA ading Phys: Cathy Camacho MD Fellow Phys: Herman Gallegos M.D. Fellow Phys: Jay Thompson M.D. Resident: Trish hnologist: Carol Morales Reason For Exam: Indications: Chest pain, unspecified ICD-9 Codes: R07.9 Exam Type: Myocardial Perfusi on Report Procedure CPT: 52036 Additional CPT: BP: / HR: Risk Factors: Previous Cardiac Procedures: Cardiac History: 38 yo male with HTN, h/o tobacco use, and family h/o CAD who reports atypical chest pain in 2018. Had a TMT in 01/2019 that was non-diagnostic due to target heart rate not achieved. Pertinent Meds: Meds past 24 hrs: Pretest Chest Pain: CARDIOLOGY STRESS TEST Exercise Cardiology exercise stress test resul ts pending under separate report. Please look in [facility] under the Procedures T ab in Chart Review. IMAGE PROTOCOL Radiopharmaceutical Dose (mCi) Duration (min) Img Date Img Time Rest: REST DATE Stress: Tc-99m 13.8 STRESS DATE 1140 Tetrofosmin Administration Site: Right antecubital fossa SPECT RESULTS Trish hnical Quality: Adequate Raw Data Analysis: Adequate Stress Perfusion Rest Perfusion Summed Stress Score:0 Summed Rest Score: 0 Summed Difference Score: 0 0 - Normal 2 - Abnormal Uptake 4 - Absent 1 - Mildly Reduced Uptake 3 - Severely Reduced Tracer Uptake X - Not Interpretable RV: SPECT images demonstrate homogeneous tracer distribution throughout the myocardium. FUNCTION (calculated via G ated SPECT) Resting LV EF: % EDV: 106 ml (70-100 ml) Post Stress LV EF: 71 % TID: ESV: 31 ml (30-50 ml) Te chnical Quality: LV Size & Function: Normal left ventricular size and ejection fraction. LV Regional Function: Normal left ventricular wall motion and thickening. Other Findings: Variable Not Implemented IMPRESSIONS 1. No scan evidence of ischemia or scar. 2. Overall left ventricular systolic function is normal with normal wall motion. 3. Normal gated SPECT left ventricular ejection fraction >54%. 4. Normal left ventricular size. 5. No previous study for comparison. 6. Please see ECG stress report in [facility] for details of tracing interpretation. [place] Control: Do not remove! Cathy Camacho MD (Electronically Signed) Final Date: 08 April 2019 15:04 [facility]ZaylrqFoouyrfszgssc9861-36-77 12:09:00* Test Item Value Reference Range Interpretation Comments Ceruloplasmin (test code = 37207721) 18 mg/dL 18-58 Lab Interpretation (test code = 16358-7) Normal [facility] CenterZeihjuFobzlzcl8954-42-37 11:26:00* Test Item Value Reference Range Interpretation Comments Ferritin (test code = 86082262) 134.3 ng/mL 23.9-336.2 Lab Interpretation (test code = 78956-1) [facility] [id number] 16:15:00* Test Item Value Reference Range Interpretation Comments SODIUM (test code = NA) 139 mmol/L 136-145 N POTASSIUM (test code = K) 3.7 mmol/L 3.5-5.1 N CHLORIDE (test code = CL) 108.0 mmol/L 98-107 H CARBON DIOXIDE (test code = CO2) 25.0 mmol/L 21-32 N ANION GAP (test code = GAP) 9.7 10-20 L GLUCOSE (test code = GLU) 104 mg/dL 74-106 N BLOOD UREA NITROGEN (test code = BUN) 12 mg/dL 7-18 N GLOMERULAR FILTRATION RATE (test code = GFR) > 60 mL/min >=60 Estimated GFR by using Modified MDRD formula.Chronic kidney disease is defined as either kidney damageor GFR <60 mL/min/1.73 m2 for >3 months. CREATININE (test code = CREAT) 1.00 mg/dL 0.7-1.3 N BUN/CREATININE RATIO (test code = BUN/CREA) 12.0 10-20 N CALCIUM (test code = CA) 9.1 mg/dL 8.5-10.1 N BASIC METABOLIC [id number] 16:10:00* Test Item Value Reference Range Interpretation Comments SODIUM (test code = NA) 139 mmol/L 136-145 N POTASSIUM (test code = K) 3.7 mmol/L 3.5-5.1 N CHLORIDE (test code = CL) 108.0 mmol/L 98-107 H CARBON DIOXIDE (test code = CO2) mmol/L 21-32 ANION GAP (test code = GAP) 10-20 GLUCOSE (test code = GLU) mg/dL 74-106 BLOOD UREA NITROGEN (test code = BUN) mg/dL 7-18 GLOMERULAR FILTRATION RATE (test code = GFR) mL/min >=60 CREATININE (test code = CREAT) mg/dL 0.7-1.3 BUN/CREATININE RATIO (test code = BUN/CREA) 10-20 CALCIUM (test code = CA) mg/dL 8.5-10.1 CBC W/AUTO [id number] 16:02:00* Test Item Value Reference Range Interpretation Comments WHITE BLOOD CELL (test code = WBC) 7.4 K/mm3 4.5-12.5 N RED BLOOD CELL (test code = RBC) 5.20 mill/mm3 4.0-5.8 N HEMOGLOBIN (test code = HGB) 16.0 gram/dL 13.0-17.5 N HEMATOCRIT (test code = HCT) 46.0 % 42.0-52.0 N MEAN CELL VOLUME (test code = MCV) 88.5 fL 80-98 N MEAN CELL HGB (test code = MCH) 30.8 picogram 27.0-33.0 N MEAN CELL HGB CONCETRATION (test code = MCHC) 34.8 gram/dL 33.0-36. 0 N RED CELL DISTRIBUTION WIDTH (test code = RDW) 11.6 % 11.6-16. 2 N RED CELL DISTRIBUTION WIDTH SD (test code = RDW-SD) 37.0 fL 37 .0-51.0 N PLATELET COUNT (test code = PLT) 193 K/mm3 150-450 N MEAN PLATELET VOLUME (test code = MPV) 9.9 fL 6.7-11.0 N NEUTROPHIL % (test code = NT%) 70.7 % 39.0-69.0 H IMMATURE GRANULOCYTE % (test code = IG%) 0.4 % 0.0-5.0 N LYMPHOCYTE % (test code = LY%) 21.2 % 25.0-55.0 L MONOCYTE % (test code = MO%) 6.3 % 0.0-10.0 N EOSINOPHIL % (test code = EO%) 1.1 % 0.0-5.0 N BASOPHIL % (test code = BA%) 0.3 % 0.0-1.0 N NUCLEATED RBC % (test code = NRBC%) 0.0 % 0-0 N NEUTROPHIL # (test code = NT#) 5.25 K/mm3 1.8-7.7 N IMMATURE GRANULOCYTE # (test code = IG#) 0.03 x10 3/uL 0-0.03 N LYMPHOCYTE # (test code = LY#) 1.57 K/mm3 1.0-5.0 N MONOCYTE # (test code = MO#) 0.47 K/mm3 0-0.8 N EOSINOPHIL # (test code = EO#) 0.08 K/mm3 0.0-0.5 N BASOPHIL # (test code = BA#) 0.02 K/mm3 0.0-0.2 N NUCLEATED RBC # (test code = NRBC#) 0.00 K/mm3 0.0-0.1 N CBC W/AUTO [id number] 16:00:00* Test Item Value Reference Range Interpretation Comments WHITE BLOOD CELL (test code = WBC) K/mm3 4.5-12.5 RED BLOOD CELL (test code = RBC) mill/mm3 4.0-5.8 HEMOGLOBIN (test code = HGB) 16.0 gram/dL 13.0-17.5 N HEMATOCRIT (test code = HCT) 46.0 % 42.0-52.0 N MEAN CELL VOLUME (test code = MCV) fL 80-98 MEAN CELL HGB (test code = MCH) picogram 27.0-33.0 MEAN CELL HGB CONCETRATION (test code = MCHC) gram/dL 33.0-36. 0 RED CELL DISTRIBUTION WIDTH (test code = RDW) % 11.6-16. 2 RED CELL DISTRIBUTION WIDTH SD (test code = RDW-SD) fL 37 .0-51.0 PLATELET COUNT (test code = PLT) K/mm3 150-450 MEAN PLATELET VOLUME (test code = MPV) fL 6.7-11.0 NEUTROPHIL % (test code = NT%) % 39.0-69.0 IMMATURE GRANULOCYTE % (test code = IG%) % 0.0-5.0 LYMPHOCYTE % (test code = LY%) % 25.0-55.0 MONOCYTE % (test code = MO%) % 0.0-10.0 EOSINOPHIL % (test code = EO%) % 0.0-5.0 BASOPHIL % (test code = BA%) % 0.0-1.0 NEUTROPHIL # (test code = NT#) K/mm3 1.8-7.7 LYMPHOCYTE # (test code = LY#) K/mm3 1.0-5.0 MONOCYTE # (test code = MO#) K/mm3 0-0.8 EOSINOPHIL # (test code = EO#) K/mm3 0.0-0.5 BASOPHIL # (test code = BA#) K/mm3 0.0-0.2 - CT HEAD/BRAIN W/O [id number] 21:19:00 Name: KENDALL,YUNIOR [facility] : 1980 Age/S: 38 / M [address] [facility] Unit #: [id number] Loc: [place] [address] Phys: Esau Taylor MD Acct: [id number] Dis Date: Status: REG ER PHONE #: [phone] Exam Date: 12/01/20182112 FAX #: [phone] Reason: Headache EXAMS: CPT CODE: [id number] CT HEAD/BRAIN W/O CONT 77268 REASON FOR EXAM: Headache EXAM ORDER DATE: 12/01/2018 7:36 PM Ordering M.Ashely: Esau Taylor MD PROCEDURE: - CT HEAD/BRAIN W/O CONT COMPARISON: FINDINGS: CT images of the brain were obtained without IV contrast. Dose modulation, iterative reconstruction, and/or weight based adjustment of the MA/KV was utilized to reduce the radiation dose to as low as reasonably achievable. The brain parenchyma is within normal limits. The reeves-white matter delineation is unremarkable. The ventricles, cisterns, and sulci are unremarkable. There is no evidence of hemorrhage, mass, mass effect. There is no evidence of acute or old infarct. The calvarium is intact. IMPRESSION: Unremarkable brain. at 2119 Reported and signed by: Reed Brady M.D. CC: Esau Taylor MD Technologist:MARCELL FOFANA RT(R),CT CTDI: DLP: Trnscb Date/Time: 12/01/2018 (2118) [email or web address] Orig Print D/T: S: 12/01/2018 (2121) PAGE 1 Signed Report URINALYSIS [id number] 20:17:00* Test Item Value Reference Range Interpretation Comments UA COLOR (test code = COLU) YELLOW YELLOW UA APPEARANCE (test code = APPU) CLEAR CLEAR UA GLUCOSE DIPSTICK (test code = DGLUU) norm mg/dL NEGATIVE UA BILIRUBIN DIPSTICK (test code = BILU) NEGATIVE mg/dL NEGATIVE UA KETONE DIPSTICK (test code = KETU) neg mg/dL NEGATIVE UA SPECIFIC GRAVITY (test code = SGU) 1.020 1.001-1.035 UA BLOOD DIPSTICK (test code = NICHOL) 10 (Trace) Mikel/uL NEGATIVE A UA PH DIPSTICK (test code = JOAN) 5.0 5.0-8.0 UA PROTEIN DIPSTICK (test code = PROU) neg mg/dL Neg-15 UA UROBILINIOGEN DIPSTICK (test code = URO) 1 mg/dL 0.0-0.2 A UA NITRITE DIPSTICK (test code = YU) NEGATIVE NEGATIVE UA LEUKOCYTE ESTERASE DIPSTICK (test code = LEUU) 25 Tristin/uL (Tra ce) uL NEGATIVE A UA WBC (test code = WBCU) 0-5 per HPF 0-5 UA RBC (test code = RBCU) 0-2 per HPF 0-5 UA EPITHELIAL CELLS (test code = EPIU) Few (2-5/hpf) per HPF Few UA BACTERIA (test code = BACU) FEW per HPF NONE UA MUCUS (test code = MUCU) MODERATE per LPF NONE-FEW A Urine Source? Clean CatchBASIC METABOLIC [id number] 20:17:00* Test Item Value Reference Range Interpretation Comments SODIUM (test code = NA) 137 mmol/L 136-145 N POTASSIUM (test code = K) 3.9 mmol/L 3.5-5.1 N CHLORIDE (test code = CL) 103 mmol/L 101-109 N CARBON DIOXIDE (test code = CO2) 27.8 mmol/L 21-32 N ANION GAP (test code = GAP) 10 mmol/L 10-20 N GLUCOSE (test code = GLU) 93 mg/dL 74-106 N BLOOD UREA NITROGEN (test code = BUN) 16 mg/dL 3-21 N GLOMERULAR FILTRATION RATE (test code = GFR) > 60 mL/min >=60 Estimated GFR by using Modified MDRD formula.Chronic kidney disease is defined as either kidney damageor GFR <60 mL/min/1.73 m2 for >3 months. CREATININE (test code = CREAT) 0.98 mg/dL 0.55-1.3 N BUN/CREATININE RATIO (test code = BUN/CREA) 16.3 10-20 N CALCIUM (test code = CA) 9.1 mg/dL 8.4-10.2 N HEPATIC FUNCTION [id number] 20:17:00* Test Item Value Reference Range Interpretation Comments TOTAL PROTEIN (test code = PROT) 7.7 g/dL 6.5-8.4 N ALBUMIN (test code = ALB) 4.2 g/dL 3.4-4.8 N GLOBULIN (test code = GLOB) 3.5 G/DL 1-10 N ALBUMIN/GLOBULIN RATIO (test code = A/G) 1.20 RATIO 0.75-1.50 N BILIRUBIN TOTAL (test code = BILT) 0.50 mg/dL 0.0-1.0 N BILIRUBIN DIRECT (test code = BILD) 0.10 mg/dL 0.0-0.30 N SGOT/AST (test code = AST) 20 U/L 6-32 N SGPT/ALT (test code = ALT) 42 U/L 12-78 N N ote: Change in REFERENCE RANGE due to new reagent method. ALKALINE PHOSPHATASE TOTAL (test code = ALKP) 58 U/L 38-126 N [id number] 20:17:00* Test Item Value Reference Range Interpretation Comments MAGNESIUM (test code = MAG) 2.2 mg/dL 1.6-2.3 N [id number] 20:17:00* Test Item Value Reference Range Interpretation Comments TROPONIN-I (test code = TROPI) <0.015 ng/mL 0.00-0.056 N URINALYSIS [id number] 20:08:00* Test Item Value Reference Range Interpretation Comments UA COLOR (test code = COLU) YELLOW YELLOW UA APPEARANCE (test code = APPU) CLEAR CLEAR UA GLUCOSE DIPSTICK (test code = DGLUU) norm mg/dL NEGATIVE UA BILIRUBIN DIPSTICK (test code = BILU) NEGATIVE mg/dL NEGATIVE UA KETONE DIPSTICK (test code = KETU) neg mg/dL NEGATIVE UA SPECIFIC GRAVITY (test code = SGU) 1.020 1.001-1.035 UA BLOOD DIPSTICK (test code = NICHOL) 10 (Trace) Mikel/uL NEGATIVE A UA PH DIPSTICK (test code = JOAN) 5.0 5.0-8.0 UA PROTEIN DIPSTICK (test code = PROU) neg mg/dL Neg-15 UA UROBILINIOGEN DIPSTICK (test code = URO) 1 mg/dL 0.0-0.2 A UA NITRITE DIPSTICK (test code = YU) NEGATIVE NEGATIVE UA LEUKOCYTE ESTERASE DIPSTICK (test code = LEUU) 25 Tristin/uL (Tra ce) uL NEGATIVE A UA WBC (test code = WBCU) per HPF 0-5 UA RBC (test code = RBCU) per HPF 0-5 UA EPITHELIAL CELLS (test code = EPIU) per HPF Few UA BACTERIA (test code = BACU) per HPF NONE Urine Source? Clean CatchCBC W/AUTO [id number] 19:58:00* Test Item Value Reference Range Interpretation Comments WHITE BLOOD CELL (test code = WBC) 7.5 K/mm3 4.5-12.5 N RED BLOOD CELL (test code = RBC) 5.16 mill/mm3 4.0-5.8 N HEMOGLOBIN (test code = HGB) 15.8 gram/dL 13.0-17.5 N HEMATOCRIT (test code = HCT) 44.2 % 42.0-52.0 N MEAN CELL VOLUME (test code = MCV) 85.7 fL 80-98 N MEAN CELL HGB (test code = MCH) 30.6 picogram 27.0-33.0 N MEAN CELL HGB CONCETRATION (test code = MCHC) 35.7 gram/dL 33.0-36. 0 N RED CELL DISTRIBUTION WIDTH (test code = RDW) 11.2 % 11.6-16. 2 L RED CELL DISTRIBUTION WIDTH SD (test code = RDW-SD) 36.1 fL 37 .0-51.0 L PLATELET COUNT (test code = PLT) 204 K/mm3 150-450 N MEAN PLATELET VOLUME (test code = MPV) 9.7 fL 6.7-11.0 N NEUTROPHIL % (test code = NT%) 53.1 % 39.0-69.0 N LYMPHOCYTE % (test code = LY%) 35.9 % 25.0-55.0 N MONOCYTE % (test code = MO%) 8.4 % 0.0-10.0 N EOSINOPHIL % (test code = EO%) 2.1 % 0.0-5.0 N BASOPHIL % (test code = BA%) 0.5 % 0.0-1.0 N NEUTROPHIL # (test code = NT#) 3.96 K/mm3 1.8-7.7 N LYMPHOCYTE # (test code = LY#) 2.68 K/mm3 1.0-5.0 N MONOCYTE # (test code = MO#) 0.63 K/mm3 0-0.8 N EOSINOPHIL # (test code = EO#) 0.16 K/mm3 0.0-0.5 N BASOPHIL # (test code = BA#) 0.04 K/mm3 0.0-0.2 N MANUAL DIFF REQUIRED (test code = MDIFF) NO [id number] 12:18:00* Test Item Value Reference Range Interpretation Comments D-DIMER (test code = DDIMER) < 100 ng/ml < 600
--- OUTSIDE RECORDS SUMMARY | 2020-01-01 21:58 | XMS REPORT | Clinical Summary ---
Author Author [facility] ict Organization [facility] ict Address Unknown Phone Unavailable Care Team Providers Care Steward/Stewardess Dining Room Name Role Phone Jose Martin Medina MD PCP Allergies Comments Active Allergy Reactions Severity Noted Date Other reaction(s): Atorvastatin Atorvastatin 06/20/2018 Atorvastatin, pravastatin -- caused myalgias Kziahen-Zuz-Zqs Reductase Other 03/04/2018 Inhibitors Medications End Date Status Medication Sig Dispensed Refills Start Date Active aspirin (ASPIRIN) 81 mg Chew and 0 chewable tablet swallow 81 mg by mouth daily. Active Docusate Sodium 100 mg Take 100 mg 100 tablet 1 TabIndications: Other by mouth 9 constipation daily. Active metoprolol tartrate Take 1 tablet 180 tablet 1 (LOPRESSOR) 25 mg by mouth 2 0 tabletIndications: times daily. Palpitations Active lactulose (CONSTULOSE) 10 Take 30 mL by 940 mL 3 gram/15 mL oral mouth 3 times 0 solutionIndications: daily. Other constipation Active ergocalciferol (VITAMIN Take 1 12 capsule 0 D2) 1,250 mcg (50,000 capsule by 0 unit) capsuleIndications: mouth weekly. Vitamin D deficiency Active traZODone (DESYREL) 50 mg Take 1 tablet 30 tablet 1 tabletIndications: by mouth at 0 Anxiety state bedtime nightly. 04/09/2019 Discontinued (Reorder) metoprolol tartrate Take 1 tablet 90 tablet 1 (LOPRESSOR) 25 mg by mouth 2 9 tabletIndications: times daily. Essential hypertension, Palpitations 10/03/2019 Discontinued (Reorder) lactulose (CONSTULOSE) 10 Take 30 mL by 940 mL 3 gram/15 mL oral mouth 3 times 9 solutionIndications: daily. Other constipation 02/28/2019 trqbiphy-uiconuica-bnrscy Instill 3 10 mL 0 ortisone, buffered, Drops in 9 (CORTISPORIN) right ear 4 3.5-10,000-1 times daily mg/mL-unit/mL-% otic for 7 days. suspensionIndications: Otitis externa of left ear, unspecified chronicity, unspecified type 10/03/2019 Discontinued (Reorder) metoprolol tartrate TAKE 1 TABLET 60 tablet 3 03/27 (LOPRESSOR) 25 mg BY MOUTH 9 tabletIndications: TWICE DAILY Essential hypertension, Palpitations Active Problems Problem Noted Date Fatty liver: recommend dietary changes, weight loss 10/21/2018 Other constipation 10/21/2018 Chest pain in adult 06/02/2017 Left upper arm pain Encounters Care Team Description Date Type Specialty Salvador Yan III, MD Insomnia, unspecified type (Primary Dx); Hypertension, unspecified type: ; Palpitations; Anxiety state 12/01/2019 Telephonic Family Practice Encounter Salvador Yan III, MD Hypertension, unspecified type: (Primar y Dx); Palpitations; Other constipation 10/03/2019 Office Visit Family Practice Elieser Mary MD Essential hypertension; Palpitations 04/09/2019 Refill Family Practice Lee Bello MD Fatty liver 04/08/2019 Hospital Lab Encounter Salvador Yan III, MD Wendt, Juliet A, MD Chest pain, unspecified type 04/08/2019 Hospital Radiology Encounter Lee Bello MD Chandran, Aswathi, Fellow(MD) Fatty liver (Primary Dx) 04/05/2019 Office Visit Gastroenterology Salvador Yan III, MD 03/30/2019 Hospital Vascular Surgery Encounter Salvador Yan III, MD Canceled (Patient Request) 03/21/2019 Hospital Radiology Encounter Salvador Yan III, MD Chest pain, unspecified type (Primary Dx ); Otitis externa of left ear, unspecified chronicity, unspecified type 02/21/2019 Office Visit Family Practice Salvador Yan III, MD Chest pain, unspecified type 02/21/2019 Orders Only Family Practice Jose Martin Medina MD 02/18/2019 Hospital Cardiology Encounter after 12/31/2018 Immunizations Name Administration Dates Next Due Influenza, Injectable, 10/03/2019 (Deferred: Patie nt Refused) Quadrivalent Influenza, 10/21/2018 (Deferred: Patie nt Refused) Vaccine<FLUCELVAX>(Multi- Dose) Tdap (Tetanus Toxoid, 11/04/2018 (Deferred: Patie nt Refused - pt states Reduced Diphtheria Toxoid he steps on nails all the time and has no And Acellular Pertussis, problems), 10/21/2018 (Defe rred: Patient Refused - Absorbed) states his is nurse an d will give him vaccines) Family History Medical History Relation Name Comments Heart Father Heart Mother Relation Name Status Comments Father Mother Social History Date Tobacco Use Types Packs/Day Years Used Quit: 05/03/2017 Former Smoker Cigarettes 1 10 Smokeless Tobacco: Never Used Tobacco Cessation: Counseling Given: No Drinks/Week oz/Week Comments Alcohol Use No Food Insecurity Answer Date Recorded Within the past 12 months, you worried that your Never kwan e 10/21/2018 food would run out before you got money to buy more. Within the past 12 months, the food you bought Never true 10/21/2018 just didn't last and you didn't have mo trever to get more. Sex Assigned at Date Recorded Not on file Industry Job Start Date Occupation Not on file Not on file Not on file Travel End Travel History Travel Start No recent travel history available. Last Filed Vital Signs Reading Time Taken Comments Vital Sign 127/87 10/03/2019 8:54 AM CDT Blood Pressure 81 10/03/2019 8:54 AM CDT Pulse 36.8 C (98.2 F) 10/03/2019 8:54 AM CDT Temperature 20 10/03/2019 8:54 AM CDT Respiratory Rate 97% 04/08/2019 10:42 AM CDT Oxygen Saturation - - Inhaled Oxygen Concentration 111 kg (244 lb 12.8 oz) 10/03/2019 8:54 AM CDT Weight 177.8 cm (5' 10") 10/03/2019 8:54 AM CDT Height 35.13 10/03/2019 8:54 AM CDT Body Mass Index Plan of Treatment Care Team Description Date Type Specialty 24 HR 01/23/2020 Appointment Health Maintenance Due Date Last Done Comments IMM Influenza Seasonal 04/26/2020 Oct to September (>/= 19 yrs) Procedures Comments Procedure Name Priority Date/Time Associated Diag nosis CBC Routine 10/03/2019 Hypertension, u nspecified 10:22 AM CDT type: VIT D, 25-HYDROXY Routine 10/03/2019 Hypertension , unspecified 10:22 AM CDT type: CALCIUM Routine 10/03/2019 Hypertension, u nspecified 10:22 AM CDT type: HEPATITIS PANEL Routine 10/03/2019 Hypertension, unspecified 10:22 AM CDT type: HIV-1/HIV-2 ROUTINE Routine 10/03/2019 Hypertensi on, unspecified SCREENING 10:22 AM CDT type: LIVER PROFILE Routine 10/03/2019 Hypertension, u nspecified 10:22 AM CDT type: UREA NITROGEN/CREATININE Routine 10/03/2019 Hyper tension, unspecified 10:22 AM CDT type: LIPID PROFILE Routine 10/03/2019 Hypertension, u nspecified 10:22 AM CDT type: GLUCOSE Routine 10/03/2019 Hypertension, u nspecified 10:22 AM CDT type: CBC/DIFF Routine 10/03/2019 Hypertension, u nspecified 10:22 AM CDT type: ELECTROLYTES Routine 10/03/2019 Hypertension, u nspecified 10:22 AM CDT type: MYOCARDIAL PERFUSION Routine 04/08/2019 Chest patti n, unspecified SPECT REST/STRES SINGLE 1:21 PM CDT type TREADMILL STRESS-TRACING 04/08/2019 ONLY 11:20 AM CDT FERRITIN Routine 04/08/2019 Fatty liver 9:20 AM CDT CERULOPLASMIN Routine 04/08/2019 Fatty liver 9:20 AM CDT LIVER KIDNEY MICR Routine 04/08/2019 Fatty liver 9:20 AM CDT ACTIN (SM) AB Routine 04/08/2019 Fatty liver 9:20 AM CDT AL Routine 04/08/2019 Fatty liver 9:20 AM CDT DUPLEX DOPPLER LOWER Routine 03/30/2019 Varicose veins of both EXTREMITY VENOUS, 10:44 AM CDT lower extremities, BILATERAL unspecified whether complicated TREADMILL STRESS-TRACING Routine 02/18/2019 Chest pain, unspecified ONLY 10:07 AM CDT type HEPATITIS PANEL Routine 01/26/2019 Fatty liver 9:02 AM CDT LIVER PROFILE Routine 01/26/2019 Fatty liver 9:02 AM CDT after 12/31/2018 Results * CBC/Diff (10/03/2019 10:22 AM CDT) WBC 7.8 4.5 - 12.0 K/uL [facility] RBC 4.64 4.60 - 6.20 M/uL [facility] Hemoglobin 14.1 14.0 - 18.0 g/dL [facility] Hematocrit 42.3 40.0 - 54.0 % [facility] MCV 91.2 82.0 - 92.0 fL [facility] MCH 30.4 27.0 - 31.0 pg [facility] MCHC 33.3 32.0 - 36.0 g/dL [facility] RDW 39.1 35.1 - 43.9 fL [facility] Platelet 256 150 - 400 K/uL [facility] Mean Platelet 9.9 9.4 - 12.4 fL [facility] Volume [facility] Percent NRBC 0.0 % [facility] Neutrophil 72.9 (H) 34.0 - 67.9 % [facility] Lymphs 16.2 (L) 21.8 - 50.0 % [facility] Monocytes 9.3 5.3 - 12.0 % [facility] Eos 0.9 0.8 - 5.0 % [facility] Basos 0.3 0.2 - 1.2 % [facility] Immature 0.4 0.0 - 0.5 % [facility] Granulocytes [facility] Neutrophils 5.71 (H) 1.78 - 5.36 K/uL [facility] (Absolute) [facility] Lymphs 1.27 (L) 1.32 - 3.57 K/uL [facility] (Absolute) [facility] Monocytes(Absol 0.73 0.30 - 0.82 K/uL [facility] jackson) [facility] Eos (Absolute) 0.07 0.04 - 0.54 K/uL [facility] Baso (Absolute) 0.02 0.01 - 0.08 K/uL [facility] Immature Grans 0.03 0.00 - 0.03 K/uL [facility] (Abs) [facility] Absolute NRBC 0.00 K/uL [facility] Specimen Blood Performing Organization Address [facility] one Number [facility] [address] [place] [address] * Vitamin D, 25-Hydroxycalciferol (10/03/2019 10:22 AM CDT) Pathologist [facility] Vit D, 29.2 (L) 30.0 - 100.0 ng/mL [facility] 25-Hydroxy [facility] Vitamin D Insufficient (A) Sufficient [facility] Interpretation Comment: [facility] Sufficient: >30.0 Insufficient: 20.0 - 29.9 Deficient: <20.0 Specimen Blood Performing Organization Address [facility] one Number [facility] [address] [place] [address] [phone] * HIV-1/HIV-2 Routine Screening (10/03/2019 10:22 AM CDT) Pathologist [facility] HIV-1/HIV-2 Negative Negative [facility] Specimen Blood Performing Organization Address [facility] one Number [facility] [address] [place] [address] * Electrolytes (10/03/2019 10:22 AM CDT) Sodium 141 136 - 145 mmol/L [facility] Potassium 4.7 3.5 - 5.1 mmol/L [facility] Chloride 103 98 - 107 mmol/L [facility] CO2 29 21 - 31 mmol/L [facility] Anion Gap 9 5 - 16 mmol/L [facility] Specimen Blood Performing Organization Address [facility] one Number [facility] [address] [place] [address] * Liver Profile (10/03/2019 10:22 AM CDT) Only the most recent of 2 results within the time period is included. [facility] Total Protein 7.3 6.0 - 8.3 g/dL [facility] Bilirubin, 0.7 0.2 - 1.2 mg/dL [facility] Total [facility] Alkaline 46 34 - 104 U/L [facility] Phosphatase [facility] AST 18 13 - 39 U/L [facility] Direct 0.2 0.0 - 0.2 mg/dL [facility] Bilirubin [facility] ALT 37 7 - 52 U/L [facility] Albumin 4.3 4.2 - 5.5 g/dL [facility] Specimen Blood Performing Organization Address [facility] one Number [facility] [address] [place] [address] [phone] * Lipid Profile (10/03/2019 10:22 AM CDT) [facility] Cholesterol 131.0 <=200.0 mg/dL [facility] Triglyceride 192 (H) <150 mg/dL [facility] HDL 25.0 See Reference Range [facility] Narrative. mg/dL [facility] LDL 68 <100 mg/dL [facility] Comment: [facility] Optimal: < 100.0 mg/dL Near Optimal: 120-129 mg/dL Borderline: 130-159 mg/dL High: 160-189 mg/dL Very High: >=190 mg/dL Patient Yes [facility] Fasting? [facility] Specimen Blood Performing Organization Address [facility] one Number [facility] [address] [place] [address] [phone] * Hepatitis Panel (10/03/2019 10:22 AM CDT) Only the most recent of 2 results within the time period is included. [facility] Hep C Vir Ab Negative Negative [facility] IgG [facility] Hep B Surface Negative Negative [facility] Ag [facility] Hep A Vir Ab Negative Negative [facility] IgM [facility] Hep B Core Ab Negative Negative [facility] IgM [facility] Specimen Blood Performing Organization Address [facility] one Number [facility] [address] [place] [address] [phone] * Glucose (10/03/2019 10:22 AM CDT) Glucose 96 70 - 110 mg/dL [facility] Specimen Blood Performing Organization Address [facility] one Number [facility] [address] [place] [address] * Calcium (10/03/2019 10:22 AM CDT) Calcium 9.1 8.6 - 10.3 mg/dL [facility] Specimen Blood Performing Organization Address [facility] By [facility] one Number [facility] [address] [place] [address] * Urea Nitrogen/Creatinine (10/03/2019 10:22 AM CDT) Urea Nitrogen 12.0 7.0 - 25.0 mg/dL [facility] Creatinine 1.0 0.7 - 1.3 mg/dL [facility] GFR, Estimated 84 (L) >=90 mL/min/1.73 m2 [facility] Specimen Blood Performing Organization Address [facility] one Number [facility] [address] [place] [address] * MYOCARDIAL PERFUSION SPECT REST/STRES SINGLE (04/08/2019 1:21 PM CDT) MYOCARDIAL Myocardial Perfusion SMS PERFUSION SPECT Report REST/STRES YUNIOR RODRIGUEZ SINGLE Age: 38 Gender: M : 1980 Exam Date: 04/08/2019 13:20 Exam Location: [facility] Ordering Phys: MANAS CAMACHO Referring Phys: JOSE MARTIN MEDINA Reading Phys: Cathy Camacho MD Fellow Phys: Herman Gallegos M.D. Fellow Phys: Jay Thompson M.D. Resident: Technologist: Carol Morales Reason For Exam: Indications: Chest pain, unspecified ICD-9 Codes: R07.9 Exam Type: Myocardial Perfusion Report Procedure CPT: 51732 Additional CPT: BP: / HR: Risk Factors: Previous Cardiac Procedures: Cardiac History: 38 yo male with HTN, h/o tobacco use, and family h/o CAD who reports atypical chest pain in 2018. Had a TMT in 01/2019 that was non-diagnostic due to target heart rate not achieved. Pertinent Meds: Meds past 24 hrs: Pretest Chest Pain: CARDIOLOGY STRESS TEST Exercise Cardiology exercise stress test results pending under separate report. Please look in [facility] under the Procedures Tab in Chart Review. IMAGE PROTOCOL Radiopharmaceutical Dose (mCi) Duration (min) Img Date Img Time Rest: REST DATE Stress: Tc-99m 13.8 STRESS DATE 1140 Tetrofosmin Administration Site: Right antecubital fossa SPECT RESULTS Technical Quality: Adequate Raw Data Analysis: Adequate Stress Perfusion Rest Perfusion Summed Stress Score:0 Summed Rest Score: 0 Summed Difference Score: 0 0 - Normal 2 - Abnormal Uptake 4 - Absent 1 - Mildly Reduced Uptake 3 - Severely Reduced Tracer Uptake X - Not Interpretable RV: SPECT images demonstrate homogeneous tracer distribution throughout the myocardium. FUNCTION (calculated via Gated SPECT) Resting LV EF: % EDV: 106 ml (70-100 ml) Post Stress LV EF: 71 % TID: ESV: 31 ml (30-50 ml) Technical Quality: LV Size & Function: Normal left [...] 6. Please see ECG stress [facility] for details of tracing interpretation. [place] Control: Do not remove! Cathy Camacho MD (Electronically Signed) Final Date: 08 April 2019 15:04 Specimen Performing Organization Address City/State/Zipcode Ph one Number [facility] * TREADMILL STRESS-TRACING ONLY (04/08/2019 11:20 AM CDT) Stress Test [facility] Test Date: 2019-04-08 Pat Name: YUNIOR RODRIGUEZ Department: Room: Gender: Card Brusher: JAMES ALDANA : 1980 Requested By: MANAS Oliver Order Number: [id number] Cara MD: Lissa Acosta MD Interpretive Statements 1. The patient exercised according to the KIMANI protocol for 9:43 mins, achieving a work level of Max. METS: 10.40. The resting heart rate of 64 bpm zac to a maximal heart rate of 151 bpm. This value represents 82 % of the maximal, age-predicted heart rate. The resting blood pressure of 143/81 mmHg zac to a maximum blood pressure of 220/106 mmHg. The exercise test was stopped due to leg discomfort. 2. Baseline ECG showed normal sinus rhythm. 3. There were no ECG changes suggestive of ischemia with treadmill stress. There was no significant arrhythmia noted. 4. The patient did not experience symptoms during peak exercise. 5. Hypertensive response to exercise. 6. Non-diagnostic treadmill due to inability to reach target heart rate. 7. Please see results from nuclear stress test from the same date for perfusion data. Electronically Signed On 04-13-2019 13:43:00 CDT by Lissa Acosta MD Specimen Performing Organization Address [facility]placed [facility] one Number SMS * Actin (Sm) Ab (04/08/2019 9:20 AM CDT) Actin (Smooth 9 0 - 19 Units BT [facility] Muscle) Comment: Antibody Negative 0 - 19 Weak positive 20 - 30 Moderate to strong positive >30 Actin Antibodies are found in 52-85% of patients with autoimmune hepatitis or chronic active hepatitis and in 22% of patients with primary biliary cirrhosis. Specimen Blood - Arm, left Narrative Performed At Performed at: - [facility] [address] [id number] Timing Inspector: Dick Meeks MD, Phone : [phone] Performing Organization Address [facility]placed By [facility] one Number [facility] [address] [place] [address] * Tiny/Kidney Micr (04/08/2019 9:20 AM CDT) Liver-Kidney 1.1 0.0 - 20.0 Units BT [facility] Microsomal Ab Comment: Negative 0.0 - 20.0 Equivocal 20.1 - 24.9 Positive >24.9 LKM type 1 antibodies are detected in patients with autoimmune hepatitis type 2 and in up to 8% of patients with chronic HCV infection. Specimen Blood Narrative Performed At Performed at: [address] [place] [address] [facility] [address] [place] [address] Timing Inspector: Dick Meeks MD, Phone : [phone] Performing Organization Address [facility]placed [facility] one Number BT [facility] [address] [place] [address] * Ferritin (04/08/2019 9:20 AM CDT) Ferritin 134.3 23.9 - 336.2 ng/mL [facility] Specimen Blood Performing Organization Address [facility] one Number [facility] [address] [place] [address] [phone] * Ceruloplasmin (04/08/2019 9:20 AM CDT) Ceruloplasmin 18 18 - 58 mg/dL [facility] Specimen Blood Performing Organization Address [facility] one Number [facility] [address] [place] [address] * AL (04/08/2019 9:20 AM CDT) AL Screen Negative Negative [facility] Specimen Blood Performing Organization Address [facility] one Number [facility] [address] [place], [place] [address] [phone] * DUPLEX DOPPLER LOWER EXTREMITY VENOUS, BILATERAL (03/30/2019 10:44 AM CDT) DUPLEX DOPPLER Lower Extremity Vein SMS LOWER EXTREMITY Mapping Report VENOUS, YUNIOR RODRIGUEZ BILATERAL Age: 38 Gender: M : 1980 Exam Date: 2019-03-30 10:44 Exam Location: [facility] Ordering Phys: SALVADOR YAN Referring Phys: Reading Phys: Krista Castañeda MD Fellow Phys: Fellow Phys: Technologist: Elliot Summers Reason For Exam: Indications: varicose vein, Asymptomatic varicose veins of unspecified lower extremity ICD-9 Codes: I83.90 Exam Type: LE Vein Mapping Procedure CPT: 22441P Additional CPT: Risk Factors: HTN History: C/O bilateral LE varicose veins Previous Vascular Surgery: NO RIGHT LEG Great Saphenous Vein Small Saphenous Vein Depth Mana Diameter Depth Mana Diameter (mm) (mm) (mm) (mm) 6.6 SFJ 6.6 UT 4.2 MT 3.3 LT 2.9 Knee PF 2.1 2.1 UC SPJ 2.1 MC 3.2 LC MC 2.2 Ankle 2.3 Ankle Characteristics SFJ: Saphenofemoral Junction PF: Popliteal Fossa Partial Thrombus UT: Upper Thigh SPJ: Saphenopopliteal Junction Acute Thrombus MT: Mid Thigh MC: Mid Calf Chronic Thrombus LT: Low Thigh Ankle: Ankle Wall Thickening Knee: Knee UC: Upper Calf LC: Low Calf Ankle: Ankle Removed Competent Hyperplastic Reflux Sclerosed Non Reflux Incompetent Normal PAGEBREAK_ LEFT LEG Small Saphenous Vein Great Saphenous Vein Diameter Depth Diameter Depth (mm) (mm) (mm) (mm) Mana Mana SFJ 9.0 UT 5.0 MT 4.6 LT 3.4 Knee 3.8 1.6 PF SPJ UC 2.8 1.8 MC MC 2.4 LC 3.0 1.8 Ankle Ankle Characteristics SFJ: Saphenofemoral Junction PF: Popliteal Fossa Partial Thrombus UT: Upper Thigh SPJ: Saphenopopliteal Junction Acute Thrombus MT: Mid Thigh MC: Mid Calf Chronic Thrombus LT: Low Thigh Ankle: Ankle Wall Thickening Knee: Knee UC: Upper Calf LC: Low Calf Ankle: Ankle Removed Competent Hyperplastic Reflux Sclerosed Non Reflux Incompetent Normal EXAM DATA Thrombus Compressible Spontaneous Phasic Augmented Competent R L R L R L R L R L R L C. Femoral N N Y Y Y Y Y Y Y Y Y Y Femoral N N Y Y Y Y Y Y Y Profunda N N Y Y Y Y Y Popliteal N N Y Y Y Y Y Y Y Y Post. Tibial N N Y Y Y Y Y Y Y Y Peroneal N N Y Y Y Y Y Y Y Great Saph N N Y Y Y Y Y Y Y Y Y Small Saph N N Y Y Y Y Y Y Y Y Y N = No; Y = Yes; O = Absent; + = Present; - = Variable or Decreased DVT Right Left No No The results of this study are: Findings A Venous Doppler exam was performed on the bilateral lower extremities. The exam is negative for deep and superficial venous thrombosis of the bilateral lower extremities. No deep or superficial venous incompetence was demonstrated on the bilateral lower extremities. See vein mapping measurements above. Conclusions A Venous Doppler exam was performed on the bilateral lower extremities. The exam is negative for deep and superficial venous thrombosis of the bilateral lower extremities. No deep or superficial venous incompetence was demonstrated on the bilateral lower extremities. See vein mapping measurements above. Krista Castañeda MD (Electronically Signed) Final Date: 01 April 2019 14:31 Specimen Performing Organization Address City/[facility]placed [facility] one Number SMS * TREADMILL STRESS-TRACING ONLY (02/18/2019 10:07 AM CDT) Stress Test [facility] Test Date: 2019-02-18 Pat Name: YUNIOR RODRIGUEZ Department: Room: Gender: Card Brusher: ZAIDA MARADIAGA : 1980 Requested By: SALVADOR Parsons Order Number: [id number] Reading MD: Marily Rios Interpretive Statements Indications: Chest pain Findings: Initial heart rate 82 bpm and blood pressure 157/97 mm Hg. 75% of age predicted maximum HR achieved. The patient was tested using Kimani for a duration of 07:48, achieving a work level of Max. METS: 8.9. A maximum heart rate of 137 bpm. Maximum systolic blood pressure of 205/68 mm Hg with baseline blood pressure of 157/97 mm Hg. Test was stopped due to fatigue. No chest pain/pressure. No ST elevations or depressions on ECG. Conclusions: 1. Treadmill stress test is non-diagnostic for ischemia 2. Testing terminated due to fatigue. No chest pain/pressure noted. 3. ECG Baseline: NSR Stress: 4. Noted arrhythmias: none 5. Hypertensive hemodynamic response to exercise Recommendations: Patient demonstrated poor exercise tolerance for age. Stress test is indeterminate as target heart rate was not achieved. No ischemic changes noted on EKG. Prelim results discussed with patient. Patient will follow up with ordering provider. Case discussed with Dr. Rios Electronically Signed On 02-18-2019 14:34:05 CDT by Marily Rios Specimen Performing Organization Address City/State/[facility] Ph one Number [facility] after 12/31/2018 Insurance Type Payer Benefit Subscriber ID Effective Phone Address Plan / Dates Group [facility] xxxxxxx 2019- [address] INDIGENT FAMILY 2020 [id number] [place]ING [place], [place] [address] [facility] [employer] xxxxxxx 2019- [phone] [facility] [address] [place] [address]
--- NOTE | 2020-01-01 23:07 | Diagnostic Imaging Report ---
Hand Complete CPT code: 26642 Indication:Left hand pain, no injury Technique: Three views of the left hand obtained Comparison: None. Findings: Distal radius and ulna appear intact. Carpal bones appear generally well aligned. The digits are intact and normal in appearance. No radial opaque foreign bodies in the soft tissues. IMPRESSION: No radiographic abnormality to explain pain. The visualized structures are normal. Signed by: Dr. Elizabeth Davison MD on 01/01/2020 11:04 PM
[2020-01-01] MEDS ORDERED: NAPROSYN500 MG PO (23:25)
--- NOTE | 2020-01-01 23:27 | Emergency Department Note ---
History of Present Illnes History of Present Illness Chief Complaint: left hand pain/ pt c/o clotting History of Present Illness This is a 39 year old male . Historian: Patient Arrival Mode: Car History limited by: condition of the patient (nor,a;) [employer] Required: No Onset (how long ago): hour(s) (2 hours) Location: back of left hand Quality: sharp Radiation: non-radiation Severity: moderate Onset quality: gradual Duration (how long): hour(s) (2) Timing of current episode: constant Progression: unchanged Context: recent illness, recent surgery, recent immobilization, recent travel, trauma/injury, new medications, hx of DVT/PE, non-compliance w/ medications Relieving factors: none Exacerbating factors: none Associated symptoms: denies other symptoms Treatments prior to arrival: none Past Medical/Family History Physician Review I have reviewed the patient's past medical and family history. Any updates have been documented here. Past Medical History Recent Fever: No Clinical Suspicion of Infectio: No New/Unexplained Change in Ment: No Past Medical History: Hypertension, Anxiety Past Surgical History: None Social History Smoking Cessation: Former smoker Counseling Performed: No Alcohol Use: None Any Illegal Drug Use: Yes (MARIJUANA) TB Exposure/Symptoms: No Physically hurt or threatened: No Family History Family history of heart diseas: No Other Last Tetanus: UTD Any Pre-Existing Lines (PICC,: No Is patient up to date on immun: No Last Flu: NO Last Pneumovax: NO Review of Systems Review of Systems Constitutional: no symptoms EENTM: no symptoms Cardiovascular: no symptoms Respiratory: no symptoms Gastrointestinal: no symptoms Genitourinary: no symptoms Musculoskeletal: as per HPI Neurological: no symptoms Psychological: no symptoms Endocrine: no symptoms Hematological/Lymphatic: no symptoms Review of other systems All other systems reviewed and negative. Physical Exam Related Data Allergies: Coded Allergies: atorvastatin (Verified Allergy, Unknown, 06/20/18) Triage Vital Signs Vital Signs Date Time Temp Pulse Resp B/P (MAP) Pulse Ox O2 Delivery O2 Flow Rate FiO2 01/01/20 22:20 98.1 77 17 161/97 97 Vital signs reviewed: Yes Physical Exam CONSTITUTIONAL Constitutional: well-developed, well-nourished HENT HENT: normocephalic, atraumatic, oropharynx clear/moist, nose normal HENT L/R: left ext ear normal, right ext ear normal EYES Eyes: PERRL, conjunctivae normal NECK Neck: ROM normal PULMONARY Pulmonary: effort normal, breath sounds normal CARDIOVASCULAR Cardiovascular: regular rhythm, heart sounds normal, capillary refill normal, normal rate GASTROINTESTINAL Abdominal: soft, nontender, bowel sounds normal GENITOURINARY Genitourinary: exam deferred SKIN Skin: warm, dry MUSCULOSKELETAL Musculoskeletal: ROM normal, tenderness (dorsal left hand) NEUROLOGICAL Neurological: alert, oriented x 3, no gross motor or sensory deficits PSYCHOLOGICAL Psychological: mood/affect normal, judgement normal Results Laboratory Lab results reviewed: Yes (D DIMER NEGATIVE) Imaging Imaging results reviewed: Yes (LEFT HAND XRAY = NEGATIVE) Critical Care Time Subsequent provider I assumed direction of critical care for this patient from another provider of my specialty. Assessment & Plan Assessment & Plan Final Impression: (1) Tendonitis Assessment & Plan NAPROSYN AND F/U WITH HAND SURGEON Depart Disposition: HOME, SELF-CARE Last Vital Signs Date Time Temp Pulse Resp B/P (MAP) Pulse Ox O2 Delivery O2 Flow Rate FiO2 01/01/20 22:20 98.1 77 17 161/97 97 Home Meds Active Scripts Naproxen (NAPROSYN) 500 Mg Tablet, 500 MG PO Q12H PRN for MODERATE PAIN (4-6), #20 TAB Prov:JONNY MCCLELLAND 01/01/20 JONNY MCCLELLAND Jan 01, 2020 23:27
[2020-01-01 23:30] VITALS: BP 159/89
== END 2020-01-01 23:42 | disposition home or self-care (01) ==
LOC: FSED 21:54
DX: M79.642 Pain in left hand (principal); M77.9 Enthesopathy, unspecified; I10 Essential (primary) hypertension; F41.9 Anxiety disorder, unspecified
CPT/HCPCS: 99283

== ENCOUNTER 2020-07-25 17:45 | Emergency (ER) | payer SELFPAY ==
[~2020-07-25] VITALS: Ht 177.8 cm; Wt 105.7 kg
[~2020-07-25 17:45] MED LIST: NAPROSYN500 MG PO
[2020-07-25] MEDS ORDERED: IOPAMIDOL 370 MG/ML 200 ML INFUS..BTL INJ ONE (20:29)
[2020-07-25] MEDS ORDERED: SODIUM CHLORIDE 0.9% 50ML 50 ML ONE (20:29)
== END 2020-07-25 21:22 | disposition home or self-care (01) ==
LOC: FSED 18:24
DX: R10.13 Epigastric pain (principal); R11.2 Nausea with vomiting, unspecified; F41.9 Anxiety disorder, unspecified; I10 Essential (primary) hypertension; K57.90 Diverticulosis of intestine, part unspecified, without perforation or abscess without bleeding
CPT/HCPCS: 74177; 80048; 80076; 81003; 85025; 99283; Q9967

== ENCOUNTER 2020-10-20 10:36 | Emergency (ER) | payer SELFPAY ==
[2020-10-20] MEDS ORDERED: ACETAMINOPHEN 325 MG TAB PO PRN (11:15)
[2020-10-20] MEDS ORDERED: ACETAMINOPHEN 325 MG TAB ONE (11:15)
== END 2020-10-20 12:26 | disposition home or self-care (01) ==
LOC: FSED 11:11
DX: R51.9 Headache, unspecified (principal); F41.9 Anxiety disorder, unspecified; I10 Essential (primary) hypertension
CPT/HCPCS: 70450; 99283

== ENCOUNTER 2020-12-04 18:14 | Emergency (ER) | payer SELFPAY ==
[~2020-12-04] VITALS: Ht 177.8 cm; Wt 106.6 kg
[2020-12-04] MEDS ORDERED: CHLORDIAZEPOXID25 MG PO (18:56)
[2020-12-04] MEDS ORDERED: METOPROLOL SUCC25 MG PO (18:56)
[2020-12-04] MEDS ORDERED: IBUPROFEN IB200 MG PO (18:56)
[2020-12-04 19:29] VITALS: BP 136/82
== END 2020-12-04 19:29 | disposition home or self-care (01) ==
LOC: FSED 18:25
DX: M54.12 Radiculopathy, cervical region (principal); F41.9 Anxiety disorder, unspecified; I10 Essential (primary) hypertension; R94.31 Abnormal electrocardiogram [ECG] [EKG]
CPT/HCPCS: 93005; 99282

== ENCOUNTER 2020-12-11 17:45 | Emergency (ER) | payer SELFPAY ==
[~2020-12-11] VITALS: Ht 177.8 cm; Wt 107.7 kg
[~2020-12-11 17:45] MED LIST changes: +CHLORDIAZEPOXID25 MG PO; +IBUPROFEN IB200 MG PO; +METOPROLOL SUCC25 MG PO
[2020-12-11] MEDS ORDERED: LISINOPRIL5 MG PO (18:32)
[2020-12-11] MEDS ORDERED: PREDNISONE50 MG PO (19:23)
[2020-12-11] MEDS ORDERED: PREDNISONE 20 MG TAB PO NR (19:30)
== END 2020-12-11 19:55 | disposition home or self-care (01) ==
LOC: FSED 18:43
DX: M54.41 Lumbago with sciatica, right side (principal); M54.16 Radiculopathy, lumbar region; I10 Essential (primary) hypertension; F41.9 Anxiety disorder, unspecified
CPT/HCPCS: 99282; J7512

== ENCOUNTER 2021-02-15 14:34 | Emergency (ER) | payer SELFPAY ==
[~2021-02-15] VITALS: Ht 177.8 cm; Wt 108.9 kg
[~2021-02-15 14:34] MED LIST changes: +LISINOPRIL5 MG PO; +PREDNISONE50 MG PO
[2021-02-15] MEDS ORDERED: CHLORDIAZEPOXID25 MG PO ×3 (14:48→16:03)
[2021-02-15] MEDS ORDERED: ONDANSETRON HCL INJ 2MG/ML 2ML 2 MG/ML VIAL IV STA (14:52)
[2021-02-15] MEDS ORDERED: PROMETHAZINE HCL (IM) 25 MG/ML VIAL IM ONE (15:34)
[2021-02-15] MEDS ORDERED: SODIUM CHLORIDE 0.9% 50ML 50 ML ONE (15:35)
[2021-02-15] MEDS ORDERED: PROMETHAZINE 12.5MG/ NACL 0.9% 12.5 MG/50 ML BAG IV ONE (15:45)
[2021-02-15] MEDS ORDERED: LISINOPRIL5 MG PO (16:00)
[2021-02-15] MEDS ORDERED: ONDANSETRON ODT4 MG PO (16:00)
[2021-02-15 16:20] VITALS: BP 142/87
== END 2021-02-15 16:19 | disposition home or self-care (01) ==
LOC: FSED 14:55
DX: R10.13 Epigastric pain (principal); F41.9 Anxiety disorder, unspecified; I10 Essential (primary) hypertension; Z87.891 Personal history of nicotine dependence; Z88.8 Allergy status to other drugs, medicaments and biological substances
CPT/HCPCS: 80048; 80076; 85025; 96374; 99283; J2405; J2550

== ENCOUNTER 2021-03-18 14:54 | Emergency (ER) | payer SELFPAY ==
[~2021-03-18] VITALS: Ht 177.8 cm; Wt 109.3 kg
[~2021-03-18 14:54] MED LIST changes: +ONDANSETRON ODT4 MG PO
[2021-03-18] MEDS ORDERED: SERTRALINE HCL50 MG PO (16:28)
[2021-03-18] MEDS ORDERED: CHLORDIAZEPOXID25 MG PO (16:31)
== END 2021-03-18 16:45 | disposition home or self-care (01) ==
LOC: FSED 15:09
DX: F06.4 Anxiety disorder due to known physiological condition (principal); I10 Essential (primary) hypertension; R06.02 Shortness of breath; M79.602 Pain in left arm; M25.512 Pain in left shoulder; M79.645 Pain in left finger(s); Z87.891 Personal history of nicotine dependence; Z79.899 Other long term (current) drug therapy
CPT/HCPCS: 93005; 99283

== ENCOUNTER 2021-04-18 19:25 | Emergency (ER) | payer SELFPAY ==
[~2021-04-18] VITALS: Ht 177.8 cm; Wt 106.6 kg
[~2021-04-18 19:25] MED LIST changes: +SERTRALINE HCL50 MG PO
== END 2021-04-18 20:19 | disposition home or self-care (01) ==
LOC: FSED 19:34
DX: I80.8 Phlebitis and thrombophlebitis of other sites (principal); F41.9 Anxiety disorder, unspecified; I10 Essential (primary) hypertension
CPT/HCPCS: 99283

== ENCOUNTER 2021-04-19 13:49 | Emergency (ER) | payer SELFPAY ==
[~2021-04-19] VITALS: Ht 177.8 cm; Wt 94.8 kg
== END 2021-04-19 15:28 | disposition home or self-care (01) ==
LOC: FSED 15:09
DX: M79.641 Pain in right hand (principal); I80.8 Phlebitis and thrombophlebitis of other sites; I10 Essential (primary) hypertension; F41.9 Anxiety disorder, unspecified
CPT/HCPCS: 99282

== ENCOUNTER 2022-05-22 18:58 | Emergency (ER) | payer SELFPAY ==
[~2022-05-22] VITALS: Ht 177.8 cm; Wt 117.9 kg
[2022-05-22] MEDS ORDERED: CEPHALEXIN500 MG PO (20:25)
== END 2022-05-22 20:39 | disposition home or self-care (01) ==
LOC: FSED 19:04
DX: S50.862A Insect bite (nonvenomous) of left forearm, initial encounter (principal); I10 Essential (primary) hypertension; F41.9 Anxiety disorder, unspecified
CPT/HCPCS: 99282

== ENCOUNTER 2024-10-30 23:44 | Emergency (ER) | payer OTHER ==
[~2024-10-30] VITALS: Ht 177.8 cm; Wt 127.0 kg
[~2024-10-30 23:44] MED LIST changes: +AZITHROMYCIN250 MG PO; +CEPHALEXIN500 MG PO; +VENTOLIN HFA18 GM INH
[2024-10-30 23:50] VITALS: PULSE 69; RESP 18; TEMP 98.3
[2024-10-31] MEDS ORDERED: BACTRIM DS TAB1 EACH PO (00:10)
[2024-10-31 00:13] VITALS: BP 153/91; PULSE 69; RESP 18; TEMP 98.3; O2SAT 98
== END 2024-10-31 00:12 | disposition home or self-care (01) ==
LOC: FSED 23:56
DX: N49.2 Inflammatory disorders of scrotum (principal)
CPT/HCPCS: 99283

== ENCOUNTER 2025-03-30 13:44 | Emergency (ER) | payer OTHER ==
[~2025-03-30] VITALS: Ht 177.8 cm; Wt 124.5 kg
[~2025-03-30 13:44] MED LIST changes: +BACTRIM DS TAB1 EACH PO
[2025-03-30 14:15] VITALS: PULSE 68; RESP 20; TEMP 97.5
[2025-03-30] MEDS ORDERED: IOPAMIDOL 370 MG/ML 100 ML INFUS..BTL INJ ONE (15:42)
[2025-03-30] MEDS: ONDANSETRON HCL INJ 2MG/ML 2ML 2 MG/ML VIAL IV STA (17:15)
[2025-03-30] MEDS: FAMOTIDINE 20 MG/2 ML VIAL IV STA (17:15)
[2025-03-30] MEDS ORDERED: PEPCID20 MG PO (17:27)
[2025-03-30] MEDS ORDERED: ONDANSETRON ODT4 MG PO (17:29)
[2025-03-30 17:50] VITALS: BP 152/92; PULSE 72; RESP 20; TEMP 96.8; O2SAT 97
== END 2025-03-30 17:50 | disposition home or self-care (01) ==
LOC: FSED 14:37
DX: R10.30 Lower abdominal pain, unspecified (principal); K57.30 Diverticulosis of large intestine without perforation or abscess without bleeding; R11.0 Nausea; N28.1 Cyst of kidney, acquired; K76.0 Fatty (change of) liver, not elsewhere classified
CPT/HCPCS: 74177; 80053; 84484; 85025; 99283; J1308; J2405; Q9967